=== PATIENT | male | born 1960 | race Caucasian/White ===

== ENCOUNTER 2023-11-04 22:09 | Inpatient (IN) ==
--- OUTSIDE RECORDS SUMMARY | 2023-11-04 22:16 | External Medical Summary | Summary of Care ---
Author Name Unknown Organization [facility] Address [address] [facility] [place] [address] Phone [phone] Care Team Providers Care Sales And Marketing Representative Name Role Phone Lakhwinder Colbert MD Primary Care Provider [phone] Reason for Visit * Reason Comments Physical-Exam Pt presents for year ly physical exam.Pt has pain in R leg that radiates to foot while laying down. Encounter Details Date Type Department Care Team (Late st Contact Info) Description 10/25/2023 2:40 PM EST Office Visit [facility] [address] [place] [phone] Valeria Stoddard PA-C [address] [place], [place] [phone] Wellness examination*; Prediabetes; Elevated blood pressure, situational; Weight gain; Piriformis syndrome of right side Allergies No known active allergiesdocumented as of this encounter (statuses as of 10/25/2023) Medications Medication Sig Dispensed Refills Start Date End Date Status Garlic 1000 MG Capsule Take 1 Capsule by mouth in the morning. 1 Cap 0 09/26/2019 Active fish oil concentrate (OMEGA-3) 1000 MG CAPS Take 1 Capsule by mouth in the morning and 1 Capsule before bedtime. 60 Cap 5 09/26/2019 Active Turmeric Curcumin Oral Capsule Take by mouth. 0 Active Sildenafil Citrate 100 MG Oral TabletIndications:Oth er male erectile dysfunction Take 1 Tablet by mouth daily as needed for Erectile Dysfunction. 5 Tablet 5 10/12/2021 Active Atorvastatin Calcium 20 MG Oral Tablet (Lipitor)Indications: Hyperlipidemia with target LDL less than 100 TAKE 1 TABLET BY MOUTH EVERY DAY 90 Tablet 3 11/29/2022 Active Loratadine 10 MG Oral Tablet (Claritin)Indications :Seasonal allergic rhinitis due to other allergic trigger TAKE 1 TABLET BY MOUTH EVERY DAY 90 Tablet 3 12/04/2022 Active Fluticasone Propionate 50 MCG/ACT Nasal Suspension (Flonase)Indications: Seasonal allergic rhinitis due to other allergic trigger SPRAY 2 SPRAYS INTO EACH NOSTRIL EVERY DAY Strength: 50 MCG/ACT 48 mL 1 12/08/2022 Active documented as of this encounter (statuses as of 10/25/2023) Active Problems Problem Noted Date Diagnosed Date Prediabetes 01/06/2020 Overview: Per Prediabetes protocol Allergic rhinitis due to allergen 05/06/2018 Abnormal results of liver function studies 08/17 Hyperlipidemia with target LDL less than 100 06/2017 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 documented as of this encounter (statuses as of 10/25/2023) Immunizations Name Administration Dates Next Due TDAP (age 10 and older)(Boostrix) 09/26/2019 documented as of this encounter Social History Tobacco Use Types Packs/Day Years Used Date Smoking Tobacco: Never Smokeless Tobacco: Current Snuff Comments:1/2 can per day Alcohol Use Standard Drinks/Week Comments Yes 0 (1 standard drink = 0.6 oz pure alcohol) rare occasions - once per month PHQ-2 Answer Date Recorded PHQ-2 Score 0 10/08/2020 Hunger Vital Sign Answer Date Recorded Within the past 12 months, y ou worried that your food would run out before you got the money to buy more. Never true 10/08/20 20 Within the past 12 months, t he food you bought just didn't last and you didn't have money to get more. Never true 10/08/2020 Sex and Gender Information Value Date Recorded Sex Assigned at Male 09/26/2019 7:26 AM EDT Gender Identity Male 09/26/2019 7:26 AM EDT Sexual Orientation Straight 09/26/2019 7: 26 AM EDT Job Start Date Occupation Industry Not on file Not on file Not on file documented as of this encounter Last Filed Vital Signs Vital Sign Reading Time Taken Comments Blood Pressure 142/82 10/25/2023 3:13 PM EST Pulse 100 10/25/2023 2:47 PM EST Temperature 36.5 C (97.7 F) 10/25/2023 2:47 PM ES T Respiratory Rate 16 10/25/2023 2:47 PM EST Oxygen Saturation - - Inhaled Oxygen Concentration - - Weight 109.4 kg (241 lb 3.2 oz) 10/25/2023 2:47 PM EST Height - - Body Mass Index 32.94 10/12/2022 9:53 AM EST documented in this encounter Progress Notes * Valeria Stoddard PA-C - 10/25/2023 2:56 PM EST Images from the original note were not included. History of Present Illness Ivan Plata is a 63 year old male that presents for Physical-Exam (Pt presents for yearly physical exam./Pt has pain in R leg that radiates to foot while laying down.) Here for cpe Tdap 2019 A bit surprised to se bp is up today.d enies headaches, cp, soba n fatigue. Has some pain in his R leg that radiates down to his foot when laying down Saw Lakhwinder Rojo and it helped He has exercises to do and they help If he does not do them then it hurts. No past medical history on file. Extensive ROS Constitutional (f/c/wt/vision/hearing): Negative and eye exam is current Resp (cough/sob/swift): Negative CV (cp/palp/fluttering/diaphoresis/swift/pnd):Negative GI (n/v/d/hrtburn): Negative Endo (hair/cold or heat intol/ 3 p's): Negative Neuro (shaking/weak/fatigu/parasthesi/): Negative Skin (rash/easy bruis/xerosis): Negative Psy (si/hi/halluc/): Negative (nocturia/hesit/drib/sexual review): Negative Lymph (swollen glands/b sx's/: Negative Physical Exam Vitals: 10/25/23 1447 Temp: 36.5 C (97.7 F) Pulse: 100 Resp: 16 BP: 146/86 BP Readings from Last 3 Encounters: 10/25/23 146/86 10/12/22 128/88 10/12/21 128/70 Wt Readings from Last 3 Encounters: 10/25/23 109.4 kg (241 lb 3.2 oz) 10/12/22 102.5 kg (226 lb) 10/12/21 103.5 kg (228 lb 3.2 oz) BMI Readings from Last 3 Encounters: 10/25/23 32.94 kg/m 10/12/22 30.87 kg/m 10/12/21 31.17 kg/m Ht Readings from Last 3 Encounters: 10/12/22 1.822 m (5' 11.75") 10/12/21 1.822 m (5' 11.75") 08/29/21 1.822 m (5' 11.75") General: alert, healthy, and no distress Head: Normocephalic, No masses, lesions, tenderness or abnormalities Eye Exam: PERRLA, extraocular movements intact, conjunctiva are pink and non- injected, sclera clear Ears: External ears normal, Canals clear, TM's Normal Nose: no mucosal erythema, no mucosal edema, no purulent discharge Oropharynx: no exudate, no erythema, lips, buccal mucosa, and tongue normal, and mucous membranes are moist Neck: supple, no adenopathy, no bruits, thyroid normal size, non-tender, without nodularity Heart: regular rate & rhythm, no murmur, no gallops, S-1 normal, and S-2 normal Lungs: chest symmetric with normal AP diameter, no chest deformities noted, no chest wall tenderness, lungs clear to auscultation Pulses: carotid=2/4 w/o bruits Abdomen: abdomen soft, non-tender, normal bowel sounds, and no masses or organomegaly Back: back symmetric, no curvature, no costovertebral angle tenderness, range of motion is normal Extremities: less than 2 second capillary refill, no joint deformities, effusion, or inflammation Neuro Exam: alert & oriented x 3 with fluent speech, no focal motor/sensory deficits, gait normal, reflexes normal and symmetric Skin: skin color, texture, turgor are normal, no rashes or significant lesions Musculoskeletal: FROM UE and LE, normal tone, no gross deformity noted, neg HANANE, no synovitis appreciated in the small joints of the hands, R hip - tight piriformis Assessment and Plan Wellness examination (Primary) Prediabetes - labs normal Elevated blood pressure, situational - repeat 142/82 He will watch bp and repeat at home Weight gain The patient is asked to make an attempt to improve diet and exercise patterns to aid in medical management of this problem. It is recommended that patients exercise for a minimum of 20 minutes duration most days of the week. Intensity should be such that the heart rate is increased and the patient is making a physical effort above their normal level of activity. Piriformis syndrome of right side hep Wrap-Up Time: I spent a total of 20-29 minutes (exact time 24 mins) on the date of service in preparation, delivery, and documentation of the care provided to Ivan Plata excluding any time spent in the performance of separately billed services. Valeria Stoddard PA-C 10/25/2023 3:14 PM documented in this encounter Nursing Notes * Taniya Epstein MED ASSIST - 10/25/2023 2:52 PM EST The patient has been properly identified by confirmation of name and date of . Chief Complaint Patient presents with Physical-Exam Pt presents for yearly physical exam. Pt has pain in R leg that radiates to foot while laying down. documented in this encounter Plan of Treatment Scheduled Procedures Name Priority Associated Diagnoses Date/Ti me COLONOSCOPY FLEXIBLE PROXIMAL DIAGNOSTIC Recall History of colon polyps Health Maintenance Due Date Last Done Comments COVID-19 Vaccine (#1) 1959 Zoster Vaccines (1 of 2) 2009 Depression Screening 09/29/2021 09/29/2020 Influenza Vaccine (FLU shot) (#1) 2023 COLONOSCOPY-EVERY 5 YRS AGES 18-100 09/25/2023 09/25/2018, 09/25/2018 HbA1c 10/05/2024 10/05/2023, 01/2022, 12/09/2019 Lipid Panel 10/05/2028 10/05/2023, 01/2022, 01/03/2019, Additional history exists DTaP,Tdap,and Td Vaccines (2 - Td or Tdap) 09/26/2029 09/26/2019 GARDASIL-HPV IMMUNIZATION SERIES Aged Out No longer eligible based on patient's age to complete this topic Hepatitis B Aged Out No longer eligi ble based on patient's age to complete this topic MENINGOCOCCAL (MENACTRA/MENVEO) Aged Out No longer eligible based on patient's age to complete this topic Pneumococcal Vaccine: Pediatrics (0 to 5 Years) and At-Risk Patients (6 to 64 Years) Aged Out No longer eligible based on patient's age to complete this topic documented as of this encounter Medical Devices Not on filedocumented as of this encounter Visit Diagnoses Diagnosis Wellness examination- Primary Prediabetes Other abnormal glucose Elevated blood pressure, situational Elevated blood pressure reading without diagnosis of hypertension Weight gain Abnormal weight gain Piriformis syndrome of right side Lesion of sciatic nerve documented in this encounter Care Teams Sales And Marketing Representative Relationship Specialty Start Date End Date Lakhwinder Colbert MD [address] [place] [address] PCP - General Family Medicine 08/03/17 documented as of this encounter
--- OUTSIDE RECORDS SUMMARY | 2023-11-04 22:17 | External Medical Summary | Continuity of Care Document ---
Author Name Unknown Organization [facility] [address] [place], [place] [id number] Care Team Providers Care Client Experience Consultant Name Role Phone Yimi Flores Primary Care Physician [phone] [id number] Date[facility]): 10/05/23 - 10/05/23 [facility] [address] [facility] [address] [facility] [address] [place], [place] [phone] Encounter Diagnosis Family history of other endocrine, nutritional and metabolic diseases(Final) - Discharge Disposition: Home or Self Care Attending Physician: MARBELLA Stoddard Desiree A Referring Physician: MARBELLA Stoddard Desiree A Allergies, Adverse Reactions, Alerts No Known Allergies Medications aspirin 81 mg oral tablet Start: 10/11/10 10:31:49, 81 mg = 1 tab, PO, Daily, Refills: 0, current medication from another provider Start Date: 10/11/10 Status: Ordered Flax Seed Oil Start: 12/06/10 10:12:05, Daily, Refills: 0, current medication from another provider Start Date: 12/06/10 Status: Ordered multivitamin Start: 10/25/10 11:36:50, 1 tab, Daily, Refills: 0, current medication from another provider Start Date: 10/25/10 Status: Ordered omega-3 polyunsaturated fatty acids oral capsule Start: 10/25/10 11:35:59, 2400 mg =, Daily, Refills: 0, current medication from another provider Start Date: 10/25/10 Status: Ordered Results Laboratory List Name Date Complete Blood Count (CBC) 10/05/23 Ferritin (FERRITIN) 10/05/23 Iron Level (IRON) 10/05/23 Most recent to oldest [Reference Range]: 1 MPV [9.0-12.2 fL] 9.6 fL 1 (10/05/23 8:40 AM) RDW [11.5-14.2 %] 12.6 % (10/05/23 8:40 AM) Iron [50-158 ug/dL] 80 ug/dL (10/05/23 8:40 AM) Ferritin [17.9-464.0 ng/mL] 348.0 ng/mL 2 (10/05/23 8:40 AM) Hct [39-48 %] 46.8 % (10/05/23 8:40 AM) Hgb [13.0-17.0 g/dL] 15.1 g/dL (10/05/23 8:40 AM) MCH [28-33 pg] 29.4 pg (10/05/23 8:40 AM) MCHC [32-36 g/dL] 32.3 g/dL (10/05/23 8:40 AM) MCV [81-96 fL] 91.2 fL (10/05/23 8:40 AM) Plts [150-350 K/uL] 241 K/uL (10/05/23 8:40 AM) RBC [4.40-5.60 M/uL] 5.13 M/uL (10/05/23 8:40 AM) WBC [4.0-10.4 K/uL] 7.48 K/uL (10/05/23 8:40 AM) 1Result Comment: Testing Performed By: Dept of Pathology [facility] [address], [address] [place] [address] 2Result Comment: Testing Performed By: Dept of Pathology [facility] [address], [address] [place] [address] Patient Care team information Care Team Personnel Name: MD lFores Charles T Position: Referring DIRECT Member Role: Primary Care Provider Address: Address: [facility] [address], [address] [place] [address] Care Team Related Persons Name: IAN JIMENEZ Address: [facility] Address: home [address], [phone] Name: ALEXI JIMENEZ Address: home [address] [place], [place] [phone] Name: MYNOR JIMENEZ Address: home [address] [place], [place] [id number]
--- OUTSIDE RECORDS SUMMARY | 2023-11-04 22:17 | External Medical Summary | Summary of Care ---
Author Name Unknown Organization [facility] Address [address] [place] [address] Phone [phone] Care Team Providers Care Senior Engineer Name Role Phone Lakhwinder Colbert MD Primary Care Provider [phone] Reason for Visit * Reason Onset Date Comments Health Maintenance 09/04/2023 Encounter Details Date Type Department Care Team Description 09/04/2023 Telephone [facility] [address] [place] [address] Lakhwinder Colbert MD [address] [place] [address] Health Maintenance Allergies No known active allergiesdocumented as of this encounter (statuses as of 09/04/2023) Medications Medication Sig Dispensed Refills Start Date End Date Status Garlic 1000 MG Capsule Take 1 Cap by mouth daily. 1 Cap 0 09/26/2019 Active fish oil concentrate (OMEGA-3) 1000 MG CAPS Take 1 Cap by mouth 2 times a day. 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 Never true 10/08/2020 Within the past 12 months, t he food you bought just didn't last and you didn't have money to get more. Never true 10/08/2020 Sex Assigned at Date Recorded Male 09/26/2019 7:26 AM E DT Job Start Date Occupation Industry Not on file Not on file Not on file documented as of this encounter Miscellaneous Notes * Telephone Encounter - Maxine Santos LPN - 09/04/2023 9:38 AM EDT Care Gaps Comprehensive Care Outreach Last Office/Telemedicine Visit: 10/12/2022 (in office), Visit date not found (telemedicine) Next Office Visit: Visit date not found Hemoglobin AIC Results: No results found for: HEMOGLOBIN A1C Reviewed Health Maintenance below: Health Maintenance Topic Date Due COVID-19 Vaccine (1) Never done Zoster Vaccines (1 of 2) Never done Depression Screening 09/29/2021 Influenza Vaccine (FLU shot) (1) Never done HbA1c 08/28/2023 COLONOSCOPY-EVERY 5 YRS AGES 18-100 09/25/2023 [facility] add lipid colon Care Gap Outreach Action Taken: Left message documented in this encounter Plan of Treatment Scheduled Procedures Name Priority Associated Diagnoses Date/Ti me COLONOSCOPY FLEXIBLE PROXIMAL DIAGNOSTIC Recall History of colon polyps Health Maintenance Due Date Last Done Comments COVID-19 Vaccine (#1) 1959 Zoster Vaccines (1 of 2) 2009 Depression Screening 09/29/2021 09/29/2020 Influenza Vaccine (FLU shot) (#1) 2023 HbA1c 08/28/2023 08/28/2022, 12/09/2019 COLONOSCOPY-EVERY 5 YRS AGES 18-100 09/25/2023 09/25/2018, 09/25/2018 Lipid Panel 08/28/2027 08/28/2022, 01/03/2019, 08/15/2017 DTaP,Tdap,and Td Vaccines (2 - Td or Tdap) 09/26/2029 09/26/2019 GARDASIL-HPV IMMUNIZATION SERIES Aged Out No longer eligible b ased on patient's age to complete this topic Hepatitis B Aged Out No longer eligi ble based on patient's age to complete this topic MENINGOCOCCAL (MENACTRA/MENVEO) Aged Out No longer eligible b ased on patient's age to complete this topic Pneumococcal Vaccine: Pediatrics (0 to 5 Years) and At-Risk Patients (6 to 64 Years) Aged Out No longer eligible b ased on patient's age to complete this topic documented as of this encounter Medical Devices Not on filedocumented as of this encounter Care Teams Senior Engineer Relationship Specialty Start Date End Date Lakhwinder Colbert MD [address], [place] [phone] PCP - General Family Medicine 08/03/17 documented as of this encounter
--- OUTSIDE RECORDS SUMMARY | 2023-11-04 22:17 | External Medical Summary | Continuity of Care Document ---
Author Name Unknown Organization [facility] [address] Address [address] [place], [place] [id number] Care Team Providers Care Pre Wave Assembler Name Role Phone Yimi Flores Primary Care Physician [phone] [id number] Date[facility]s): 10/05/23 - 10/05/23 [facility] [address] [facility] [address], [facility] [address] [place], [place] [phone] Encounter Diagnosis Hyperlipidemia, unspecified(Final) - Prediabetes(Final) - Discharge Disposition: Home or Self Care Attending Physician: MD Colbert Mark S Referring Physician: MD Sayra, Lakhwinder Akins Allergies, Adverse Reactions, Alerts No Known Allergies [...] Status: Ordered Results Laboratory List Name Date Comprehensive Metabolic Panel (COMP META B PANEL) 10/05/23 Hemoglobin A1C (HEMOGLOBIN, A1C) 3 Lipid Profile (LIPOPROTEINS) 10/05/23 Most recent to oldest [Reference Range]: 1 eGFR CKD-EPI [>60 mL/min/1.73 m2] 83 mL/ min/1.73 m2 1 (10/05/23 8:38 AM) Estimated Average Glucose 123 mg/dL 2 (10/05/23:38 AM) Non-HDL 151 mg/dL 3 (10/05/2338 AM) Anion Gap [5-14 mmol/L] 7 mmol/L (10/05/23:38 AM) Alb [3.5-5.0 g/dL] 4.4 g/dL (10/05/2338 AM) Alk Phos [38-126 unit/L] 93 unit/L (10/05/23:38 AM) ALT [<50 unit/L] 45 unit/L (10/05/2338 AM) AST [15-46 unit/L] 33 unit/L (10/05/2338 AM) BUN [7-20 mg/dL] 20 mg/dL (10/05/23:38 AM) Ca [8.4-10.2 mg/dL] 9.3 mg/dL (10/05/2338 AM) Chol/HDL 5 (10/05/2338 AM) Chol [125-200 mg/dL] 186 mg/dL (10/05/23:38 AM) Cl- [96-107 mmol/L] 108 mmol/L *HI* (10/05/23:38 AM) HCO3 [22-30 mmol/L] 27 mmol/L (10/05/23:38 AM) Cret [0.70-1.30 mg/dL] 1.01 mg/dL (10/05/23:38 AM) HbA1c [4.0-6.0 %] 5.9 % (10/05/23:38 AM) Glu [74-106 mg/dL] 134 mg/dL *HI* (10/05/23:38 AM) HDL [>35 mg/dL] 35 mg/dL *LOW* (10/05/23:38 AM) K [3.5-5.1 mmol/L] 5.3 mmol/L *HI* (10/05/23:38 AM) LDL Chol, Calculated [50-130 mg/dL] 115 mg/dL (10/05/23:38 AM) Na [137-145 mmol/L] 142 mmol/L (10/05/23 8:38 AM) T Bili [0.2-1.3 mg/dL] 0.7 mg/dL (10/05/23 8:38 AM) Prot [6.3-8.2 g/dL] 7.6 g/dL (10/05/23 8:38 AM) TG [<200 mg/dL] 178 mg/dL (10/05/23 8:38 AM) 1Result Comment: Testing Performed By: Dept of Pathology [facility] [address], [address], [place] [address] 2Result Comment: Testing Performed By: Dept of Pathology [facility] [address], [address], [place] [address] 3Result Comment: Testing Performed By: Dept of Pathology [facility] [address], [address] [facility], [place] [address] Patient Care team information Care Team Personnel Name: MD Sandra, Yimi Portillo Position: Referring DIRECT Member Role: Primary Care Provider Address: Address: [address], [address] [place] [address] Care Team Related Persons Name: IAN JIMENEZ Address: [facility] Address: home [address] [id number] Name: ALEXI JIMENEZ Address: home [address] [place], [place] [phone] Name: MYNOR JIMENEZ Address: home [address] [place], [place] [phone]
--- OUTSIDE RECORDS SUMMARY | 2023-11-04 22:17 | External Medical Summary | Summary of Care ---
Author Name Unknown Organization [facility] Address [address] [place] [address] Phone [phone] Care Team Providers Care Field Support Engineer Name Role Phone Lakhwinder Colbert MD Primary Care Provider [phone] Encounter Details Date Type Department Care Team (Late st Contact Info) Description 10/09/2023 Orders Only [facility] [address] [place] [phone] Valeria Stoddard PA-C [address] [place], [place] [phone] Allergies No known active allergiesdocumented as of this encounter (statuses as of 10/09/2023) Medications Medication Sig Dispensed Refills Start Date [...] as of this encounter (statuses as of 10/09/2023) Active Problems Problem Noted Date Diagnosed Date Prediabetes 01/06/2020 Overview: Per Prediabetes protocol Allergic rhinitis due to allergen 05/06/2018 Abnormal results of liver function studies 08/17 Hyperlipidemia with target LDL less than 100 06/2017 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 documented as of this encounter (statuses as of 10/09/2023) Immunizations Name Administration Dates Next Due TDAP [...] on file documented as of this encounter Plan of Treatment Upcoming Encounters Date Type Department Care Team (Late st Contact Info) Description 10/25/2023 2:40 PM EST Office Visit [facility] [address] [place] [phone] Valeria Stoddard [facility]C [address] [facility] [address] Scheduled Procedures Name Priority Associated Diagnoses Date/Ti me COLONOSCOPY FLEXIBLE PROXIMAL DIAGNOSTIC Recall History of colon polyps Health Maintenance Due Date Last Done Comments COVID-19 Vaccine (#1) 1960 Zoster Vaccines (1 of 2) 2009 Depression Screening 09/29/2021 09/29/2020 Influenza Vaccine (FLU shot) (#1) 2023 HbA1c 08/28/2023 10/05/2023, 01/2022, 12/09/2019 COLONOSCOPY-EVERY 5 YRS AGES 18-100 09/25/2023 09/25/2018, 09/25/2018 Lipid Panel 08/28/2027 10/05/2023, 01/2022, 01/03/2019, Additional history exists DTaP,Tdap,and [...] Not on filedocumented as of this encounter Procedures Procedure Name Priority Date/Time Associated Diagnosis Comments CHEMISTRY-OUTSIDE Routine 10/05/2023 documented in this encounter Results * CHEMISTRY-OUTSIDE (10/05/2023) Not all results display below - see scan for full detail OUTSIDE LAB (SEE SCANNED REPORT) Comment:SCAN INCLUDES: IRON, FERRITIN, CBC CREATININE-OUTSID E LAB OUTSIDE LAB (SEE SCANNED REPORT) EGFR-OUTSIDE LAB OUT SIDE LAB (SEE SCANNED REPORT) POTASSIUM-OUTSIDE LAB OUTSIDE LAB (SEE SCANNED REPORT) GLUCOSE-OUTSIDE LAB OUTSIDE LAB (SEE SCANNED REPORT) HOURS FASTING OUTSID E LAB (SEE SCANNED REPORT) TRIGLYCERIDES-OUT SIDE LAB OUTSIDE LAB (SEE SCANNED REPORT) CHOLESTEROL-OUTSI DE LAB OUTSIDE LAB (SEE SCANNED REPORT) HDL-OUTSIDE LAB OUTS MELI LAB (SEE SCANNED REPORT) CHOL/HDL RATIO-OUTSIDE LAB OUTSIDE LA B (SEE SCANNED REPORT) LDL (CALCULATED)-OUTS MELI LAB OUTSIDE LAB (SEE SCANNED REPORT) LDL (DIRECT MEASURE)-OUTSIDE LAB OUTSIDE LAB (SEE SCANNED REPORT) HEMOGLOBIN, [id number] LAB OUTSIDE LAB (SEE SCANNED REPORT) PHOSPHORUS-OUTSID E LAB OUTSIDE LAB (SEE SCANNED REPORT) PTH-OUTSIDE LAB OUTS MELI LAB (SEE SCANNED REPORT) MICROALBUMIN RATIO-OUTSIDE LAB OUTSIDE LA B (SEE SCANNED REPORT) PROTEIN, UA-OUTSIDE LAB OUTSIDE LAB (SEE SCANNED REPORT) HEMOGLOBIN-OUTSID E LAB 15.1 13 - 17 G/DL OUTSIDE LAB (SEE SCANNED REPORT) 10/05/2023 Valeria Stoddard PA-C LABORATORY OUTSIDE LAB (SEE SCANNED REPORT) documented in this encounter Care Teams Field Support Engineer Relationship Specialty Start Date End Date Lakhwinder Colbert MD [address] [place] [facility] [place] [address] PCP - General Family Medicine 08/03/17 documented as of this encounter
[2023-11-04] MEDS ORDERED: ALUMINUM/MAGNESIUM SUSP 30 ML UDC PO STA (22:27)
[2023-11-04] MEDS ORDERED: ASPIRIN CHEW 324 MG PO STA (22:27)
[2023-11-04] MEDS ORDERED: MoRPHine SULFATE 4 MG/ML 1 ML CARP\\VIAL IV STA (22:27)
[2023-11-04] MEDS ORDERED: PANTOprazole 40 MG TAB PO STA (22:27)
[2023-11-04] MEDS ORDERED: ONDANSETRON INJ 2 MG/ML 2 ML VIAL IV STA (22:27)
--- NOTE | 2023-11-04 22:30 | Emergency Department Note ---
Impression & Plan Acute non-ST segment elevation myocardial infarction, Chest pain ED Provider Note NAME: ADALID JIMENEZ AGE: 63 SEX: M : 1960 ARRIVES VIA: Walk-In INFORMANT: Patient, ED PROVIDER(S): Hipolito Qureshi DO CHIEF COMPLAINT: Chest pain HPI: The patient is a 63-year-old male who has a history of high cholesterol who presented to the emergency department for an evaluation of anterior chest pain. He describes anterior chest pressure that began prior to arrival. He states that he was eating chili today and thought it could be an upset stomach. His significant other states that he is not been feeling well throughout the day. The patient denies having any shortness of breath. He denies having any vomiting. He does not have a cardiac history and has had no cardiac catheterization or stents in the past. The patient was found to have an abnormal EKG in triage. It was brought to my attention and the patient was taken directly to room A1. Patient was made a heart alert ROS: See above HPI for pertinent positives & negatives. A total of 10 systems reviewed and were otherwise negative. PAST MEDICAL HISTORY: See Below PAST SURGICAL HISTORY: See Below FAMILY HISTORY: See Below SOCIAL HISTORY: See Below HOME MEDICATIONS: See Below ALLERGIES: See Below VITALS: See Below PHYSICAL EXAMINATION: GENERAL: Patient is awake alert in no acute distress patient is resting comfortably and showing no signs of anxiety EYES: The conjunctivae are clear. The pupils are round and reactive. EARS, NOSE, MOUTH AND THROAT: The nose is without any evidence of any deformity. NECK: The neck is nontender and supple. RESPIRATORY: Normal respiratory effort is noted there is no evidence of wheezing rhonchi or rales CARDIOVASCULAR: Regular rate and rhythm noted there no murmurs rubs or gallops normal S1 normal S2. GASTROINTESTINAL: The abdomen is soft. Abdomen is nontender. MUSCULOSKELETAL/EXTREMITIES: There is no evidence of gross deformity full range of motion is noted in the hips and shoulders. SKIN: There is no obvious evidence of any rash. There are no petechiae, pallor or cyanosis noted. Pulses are symmetric in both wrist. NEUROLOGIC: Patient is awake alert and oriented x3. Gait was steady. MEDICAL DECISION MAKING: The patient is a 63-year-old male who presented to the emergency department for an evaluation of chest pain. The patient states that he did not feel well throughout the day but this evening he started noticing anterior chest discomfort. He has never had similar symptoms in the past. He did eat chili this evening and thought it was secondary to GI upset. Upon arrival the patient had a EKG done in triage which was found to be abnormal. He was brought directly to room A1 and made a heart alert. The patient was treated with aspirin in the emergency department. He was also treated with a proton pump inhibitor and Maalox. He was also treated with morphine. On reevaluation the patient was pain-free but EKG continues to show ST segment abnormalities consistent with an acute PA. I consulted with the customer operations associate. He evaluated the patient in the emergency department and felt that he was a good candidate for intervention. He was taken directly to the cardiac Hotel Night Auditor. I also discussed his case with the on-call [facility] hospitalist. They have agreed to evaluate the patient after cath for inpatient management. Triage Nursing notes reviewed. Prior medical records reviewed Vital Signs: reviewed and remarkable for elevated blood pressure and tachycardia. Differential diagnosis: Cardiac ischemia, aortic dissection, pulmonary embolism, pneumothorax, pneumonia, pericarditis, myocarditis, esophageal rupture, GERD, cholecystitis, pancreatitis, musculoskeletal, as well as other pathologies. ER treatment provided: See below Diagnostics interpreted by me: ECG: EKG was obtained in the emergency department. My interpretation is normal sinus rhythm at 84 bpm. There was no ectopy. ST segment elevation was noted in the inferior leads. There was reciprocal changes in the high lateral leads. This appears to be consistent with acute inferior wall PA. This was compared to a tracing from March 05, 2019. The ST segment abnormalities are new compared to the previous tracing. A second EKG was obtained in the emergency department. My interpretation is sinus rhythm at 88 bpm. PACs were noted. Acute ST segment elevation was noted in the inferior leads with reciprocal changes noted in the high lateral leads. This appears similar to the tracing initially obtained in the emergency department. Cardiac Monitoring: An order was placed for continuous cardiac monitoring. The monitor shows a rate of 106 bpm with sinus tachycardia. Laboratory studies: As stated above and show below. Imaging studies: See below. Radiographic imaging was reviewed by myself Consultation(s): I discussed this case with Dr. Lizama who is on-call for the interventional cardiology group. I discussed this case with Dr. Dunn who is on-call for the [facility] project controls scheduler group. ED COURSE: Procedures: none Critical Care: I have personally spent greater than 35 minutes of critical care time in the direct management of this patient. This includes bedside care, interpretation of diagnostic studies, and testing, discussion with consultants, patient, and family members, and other required patient management activities. This 35 minutes is in excess of all separately billable procedures. Past Med/Surg History Medical History High cholesterol Social History Smoking Status: Never smoker Feels Safe at Home: Yes Allergies Allergies Allergy/AdvReac Type Severity Reaction Status Date / Time No Known Allergies Allergy Unverified 11/04/23 22:34 Home Meds Home Medications Medication Instructions Recorded Confirmed atorvastatin 20 mg tablet 20 mg PO DAILY 11/04/23 11/04/23 garlic 1,000 mg capsule 1,000 mg PO QAM 11/04/23 11/04/23 loratadine 10 mg tablet 10 mg PO DAILY 11/04/23 11/04/23 omega 8-bpn-ldr-fish oil 1,000 mg 1 cap PO AMHS 11/04/23 11/04/23 (120 mg-180 mg) capsule (Fish Oil) Results & Data (ED) Vital Signs Vital Signs - 24 hr 11/04/23 22:14 11/04/23 22:26 11/04/23 22:26 Temperature 36.8 C Temperature Source Temporal Artery Scan Pulse Rate 86 106 H Pulse Rhythm Regular Regular Pulse Strength Normal Respiratory Rate 20 18 Respiratory Effort / Characteristics Non-Labored Spontaneous Respiratory Depth Normal Blood Pressure 113/77 Blood Pressure Mean 89 Blood Pressure Position Sitting Pulse Oximetry 97 98 98 Oxygen Delivery Method Room Air Room Air Room Air Oxygen Flow Rate 0 Sepsis Recent Fever Within 48 Hours No Sepsis New/Unexplained Change in Mental Status N/A Sepsis Action Taken by Nursing No Action Required Home Medications Current Medication List: was personally reviewed by me Laboratory Data Attestation: I reviewed the patient's lab results. 11/04/23 Unknown 11/04/23 Unknown Lab Results 11/04/23 11/04/23 Range/Units 22:27 Unknown WBC 8.95 (4.8-10.8) K/ul RBC 5.06 (4.70-6.10) M/uL Hgb 15.0 (14.0-18.0) g/dl Hct 44.8 (42.0-52.0) % MCV 88.5 (80.0-100.0) fL MCH 29.6 (25.0-34.0) pg MCHC 33.5 (32.0-36.0) g/dL RDW Std Deviation 41.8 (36.4-46.3) fL RDW Coeff of Shine 12.9 (11.5-14.5) % Plt Count 248 (130-400) K/uL MPV 9.4 (9.4-12.4) fL Immature Gran % (Auto) 0.4 % Neut % (Auto) 52.5 % Lymph % (Auto) 34.3 % Dickens % (Auto) 9.3 % Eos % (Auto) 3.1 % Baso % (Auto) 0.4 % Neut # (Auto) 4.69 (1.40-6.50) K/uL Lymph # (Auto) 3.07 (1.20-3.40) K/uL Dickens # (Auto) 0.83 H (0.11-0.59) K/uL Eos # (Auto) 0.28 (0.00-0.50) K/uL Baso # (Auto) 0.04 (0.00-0.20) K/uL Immature Gran # (Auto) 0.04 (0.01-0.20) K/uL PT 10.8 (9.0-12.0) Seconds INR 1.0 (0.9-1.1) APTT 29 (21-31) Seconds PTT Ratio 1.0 Sodium 139 (136-145) mmol/L Potassium 3.7 (3.5-5.1) mmol/L Chloride 105 (98-107) mmol/L Carbon Dioxide 27 (21-32) mmol/L Anion Gap 7 (3-11) BUN 19 (6-23) mg/dl Creatinine 1.17 (0.6-1.4) mg/dl Est Cr Clr Drug Dosing 81.7 ml/min Est GFR ( Amer) 75.9 ml/min Est GFR (Non-Af Amer) 65.5 ml/min BUN/Creatinine Ratio 16.2 (10-20) Glucose 130 H (70-99(Fasting)) mg/dl Calcium 9.4 (8.6-10.3) mg/dl Total Bilirubin 0.6 (0.2-1.0) mg/dl AST 35 (13-39) U/L ALT 57 H (7-52) U/L Alkaline Phosphatase 97 (34-104) U/L Troponin I High Sens 158.0 H* (0-20) pg/ml Total Protein 7.2 (6.0-8.3) gm/dl Albumin 4.5 (3.4-5.0) gm/dl Globulin 2.7 (2.5-4.0) gm/dl Albumin/Globulin Ratio 1.7 (0.9-2) SARS-CoV-2 (PCR) NEGATIVE (Negative) Influenza Type A (PCR) Negative (Neg) Influenza Type B (PCR) Negative (Neg) RSV (RT-PCR) Negative (Neg) Administered Medications Discontinued Medications Al Hydrox/Mg Hydrox/Simethicone (Aluminum/Magnesium Susp 30 Ml Udc) 30 ml PO NOW STA Stop: 11/04/23 22:28 Last Admin: 11/04/23 22:34 Dose: 30 ml Documented By: LARS Aspirin (Aspirin Chew 324 Mg) 324 mg PO NOW STA Stop: 11/04/23 22:28 Last Admin: 11/04/23 22:36 Dose: 324 mg Documented By: LARS Heparin Sodium (Porcine) (Heparin Sod (Porcine) 1000 Unit/Ml) Confirm Administered Dose 1,000 units .ROUTE .STK-MED ONE Stop: 11/04/23 22:33 Last Admin: 11/04/23 22:39 Dose: Not Given Documented By: LARS Morphine Sulfate (Morphine Sulfate 4 Mg/Ml 1 Ml Carp\Vial) 4 mg IV NOW STA Stop: 11/04/23 22:28 Last Admin: 11/04/23 22:38 Dose: 4 mg Documented By: LARS Ondansetron HCl (Ondansetron Inj 2 Mg/Ml 2 Ml Vial) 4 mg IV NOW STA Stop: 11/04/23 22:28 Last Admin: 11/04/23 22:34 Dose: 4 mg Documented By: LARS Pantoprazole Sodium (Pantoprazole 40 Mg Tab) 40 mg PO NOW STA Stop: 11/04/23 22:28 Last Admin: 11/04/23 22:34 Dose: 40 mg Documented By: LARS Ticagrelor (Ticagrelor 90 Mg Tab) Confirm Administered Dose 180 mg .ROUTE .STK- MED ONE Stop: 11/04/23 22:33 Last Admin: 11/04/23 22:39 Dose: Not Given Documented By: LARS Imaging Data Attestation: I personally reviewed and interpreted this imaging study as follows: My Impression: 1 view chest x-ray was obtained in the emergency department. My interpretation is cardiomegaly, no free air, no definite infiltrate, final report pending Discharge Plan Visit Data Chief Complaint: Cardiac Assessment Stated Complaint: CHEST PAIN, LT ARM TINGLINESS, SOB ED Provider: Hipolito Qureshi Discharge Problem: Acute non-ST segment elevation myocardial infarction, Chest pain Patient Disposition: Being Evaluated by Hospitalist Discharge Problem: Chest pain Qualifiers: Chest pain type: unspecified Qualified Code(s): R07.9 - Chest pain, unspecified
[2023-11-04] MEDS ORDERED: TICAGRELOR 90 MG TAB ONE (22:32)
[2023-11-04] MEDS ORDERED: HEPARIN SOD (PORCINE) 1000 UNIT/ML ONE (22:32)
[2023-11-04 22:37] LABS: Basophils # (auto) 0.04 K/uL (0.00-0.20); Basophils % (auto) 0.4 %; Eosinophils # (auto) 0.28 K/uL (0.00-0.50); Eosinophils % (auto) 3.1 %; Hematocrit (blood only) 44.8 % (42.0-52.0); Immature Granulocytes # (auto) 0.04 K/uL (0.01-0.20); Immature Granulocytes % (auto) 0.4 %; Lymphocytes # (auto) 3.07 K/uL (1.20-3.40); Lymphocytes % (auto) 34.3 %; Mean Corpuscular Hemoglobin 29.6 pg (25.0-34.0); Mean Corpuscular Hgb Conc 33.5 g/dL (32.0-36.0); Mean Corpuscular Volume 88.5 fL (80.0-100.0); Mean Platelet Volume 9.4 fL (9.4-12.4); Monocytes # (auto) 0.83 K/uL (0.11-0.59); Monocytes % (auto) 9.3 %; Neutrophils # (auto) 4.69 K/uL (1.40-6.50); Neutrophils % (auto) 52.5 %; Platelet Count 248 K/uL (130-400); RDW Coefficient of Variation 12.9 % (11.5-14.5); RDW Standard Deviation 41.8 fL (36.4-46.3); Red Blood Count 5.06 M/uL (4.70-6.10); White Blood Count 8.95 K/ul (4.8-10.8)
[2023-11-04] MEDS ORDERED: niCARdipine HCL INJ 2.5 MG/ML 10 ML AMP ONE (22:40)
[2023-11-04] MEDS ORDERED: MIDAZOLAM HCL 1 MG/ML 2ML VIAL ONE (22:40)
[2023-11-04] MEDS ORDERED: fentaNYL citrate PF 100 MCG/2 ML VIAL ONE (22:40)
[2023-11-04] MEDS ORDERED: HEPARIN (PORCINE) 1000 UNIT/ML 10 ML (CATH LAB USE ONLY) ONE (22:40)
[2023-11-04] MEDS ORDERED: NITROGLYCERIN/D5W 100MCG/ML 20ML SYR ONE (22:41)
[2023-11-04 22:56] LABS: Albumin Globulin Ratio 1.7 (0.9-2); Albumin Level 4.5 gm/dl (3.4-5.0); BUN Creatinine Ratio 16.2 (10-20); Bilirubin,Total 0.6 mg/dl (0.2-1.0); Calcium 9.4 mg/dl (8.6-10.3); Creatinine Clr Calc Pharmacy 81.7 ml/min; Est GFR (African American) 75.9 ml/min; Est GFR (Non-African American) 65.5 ml/min; Globulin 2.7 gm/dl (2.5-4.0); Potassium 3.7 mmol/L (3.5-5.1); Total Protein 7.2 gm/dl (6.0-8.3)
--- NOTE | 2023-11-04 23:02 | Pre Anesthesia Assessment ---
Date of Service November 04, 2023 Pre Sedation Assessment Vital Signs Temp Pulse Resp BP Pulse Ox O2 Del Method O2 Flow Rate 11/04/23 22:26 106 H 18 98 Room Air 11/04/23 22:26 98 Room Air 0 11/04/23 22:14 98.2 F 86 20 113/77 97 Room Air Cardiovascular + regular rate Respiratory + respiratory effort normal Pre-Sedation Airway Assessment Smoking Status: Never smoker Hx Sleep Apnea: No Hx Difficult Intubation: No Short, Thick Neck: No Thyromental Distance: > or= 3.5 Finger Breadths Oral Cavity: + WNL Mallampati Class: III ASA: ASA4 Procedure Planning Contraindications for Sedation: none Current Medications Reviewed: Yes Notes The planned sedation has been discussed with the patient. Informed Consent was obtained. I have identified the patient, determined the appropriateness of sedation and have assessed the patient immediately prior to the procedure. All medicine(s) and interventions are by my order.
--- NOTE | 2023-11-04 23:04 | Cardiology Consultation ---
Date of Consultation November 04, 2023 Assessment & Plan (1) Acute non-ST segment elevation myocardial infarction: Presentation consistent with inferior STEMI and recommend proceeding with emergent cardiac catheterization and likely primary PCI. No apparent contraindications to procedure. Discussed risks, benefits, alternatives of procedure with patient and they are willing to proceed. Given ticagrelor 180 mg in the ED. Further recommendations pending findings of coronary angiography. History of Present Illness History of Present Illness Mr. Plata is a 63 -year-old man here with acute chest pain and ECG concerning for acute MA. Patient seen emergently in the ED after heart alert activated on arrival. No prior cardiac history. Cardiac risk factors include dyslipidemia. No other significant medical issues. He reports mild intermittent chest symptoms and feeling generally unwell beginning this afternoon. Around 8 PM tonight chest pain became more severe and persistent with associated nausea, initially thought indigestion. Denies similar symptoms in the past. Chest pain ongoing at time of arrival. Hypertensive with blood pressures in the 190s. Chest pain largely resolved with morphine. Serial ECG showed persistent inferior ST elevation and ST depression in leads I, aVL. Family history: Father had CABG in his 60s, mother had stroke in her 60s. 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 Lives with his . 3 grown children. Non-smoker Allergies Allergy/AdvReac Type Severity Reaction Status Date / Time No Known Allergies Allergy Unverified 11/04/23 22:34 Home Medications Medication Instructions Recorded Confirmed Type atorvastatin 20 mg tablet 20 mg PO DAILY 11/04/23 11/04/23 History garlic 1,000 mg capsule 1,000 mg PO QAM 11/04/23 11/04/23 History loratadine 10 mg tablet 10 mg PO DAILY 11/04/23 11/04/23 History omega 3-ahk-qkz-fish oil 1,000 mg 1 cap PO AMHS 11/04/23 11/04/23 History (120 mg-180 mg) capsule (Fish Oil) Patient History Medical History High cholesterol Social History Smoking Status: Never smoker Feels Safe at Home: Yes Review of Systems Review of Systems: Not completed in the setting of emergent situation Physical Exam Physical Exam: General: Uncomfortable HEENT: Sclerae anicteric Lungs: Clear to auscultation bilaterally Cardiac: Tachycardic, regular, no murmurs Vascular: 2+ radia Abdomen: Soft, nontender Extremities: Well perfused, no peripheral edema Neuro: Nonfocal Psych: Alert orient x3, normal affect and mood Results & Data Vital Signs (Past 12 Hours) Vital Signs Temp Pulse Resp BP Pulse Ox O2 Del Method O2 Flow Rate 11/04/23 22:26 106 H 18 98 Room Air 11/04/23 22:26 98 Room Air 0 11/04/23 22:14 98.2 F 86 20 113/77 97 Room Air PG Care Time/CCT Total # of Minutes Spent Total Time Spent with Patient: Total time spent is greater than 50% in coordination of care (as documented) at patient's floor/unit and/or counseling patient: Coding Level of Care Code 48833 OFFICE CONSULT LVL Diagnoses Acute non-ST segment elevation myocardial infarction I21.4
[2023-11-04 23:07] LABS: Partial Thromboplastin Time 29 Seconds (21-31); Prothrombin Time 10.8 Seconds (9.0-12.0)
[2023-11-04 23:14] LABS: Influenza A virus by PCR Negative (Neg); Influenza B virus by PCR Negative (Neg); RSV by PCR Negative (Neg); SARS CoV2 RNA(COVID-19) Ceph NEGATIVE (Negative)
[2023-11-04] MEDS ORDERED: NITROGLYCERIN SL 0.4 MG/TAB TAB SL PRN (23:51)
[2023-11-04] MEDS ORDERED: ACETAMINOPHEN 325 MG TAB PO PRN (23:51)
--- NOTE | 2023-11-05 | Cardiac Catheterization ---
[facility] Data: Melter Clerk Cardiac Status Clinical evaluation leading to the procedure CAD Presenation: STEMI Anginal Classification: CCS IV Diagnostic Physicians Name: Russ Lizama MD Closure Device Recommendations: PCI without planned CABG Cardiac Cath Procedure Full Procedure Date November 05, 2023 Pre-Procedure Diagnosis Pre-Procedure Diagnosis: STEMI AUC Score AUC Score: 9 Post-Procedure Diagnosis Post-Procedure Diagnosis: Severe CAD, Successful PCI and Elevated Intracardiac Pressures Procedure(s) Performed Procedure(s) Performed: Coronary Angiography, Left Heart Cath and Drug Eluting Stent Radiology Interventional Physician Russ Lizama MD Laminating Press Operator(s) Wil Francisco Estimated Blood Loss Estimated Blood Loss: 10 Medication(s) Medication(s): Fentanyl, Heparin, Lidocaine 1%, Nicardipine, Nitroglycerin and Versed Medication(s): Ticagrelor Summary of Findings Indication: STEMI/Heart Alert Access: 6 Fr right radial artery Catheters: Mcgregor, EBU 3.5 guide, pigtail Findings: LM -normal caliber, no significant disease LAD -medium caliber, 30 to 40% proximal disease, focal 50% stenosis in the midsegment, distal vessel without significant disease and wraps around apex.. Very small D1 without disease. Medium caliber bifurcating D2 without disease. Circumflex -medium caliber 98% acute mid circumflex stenosis extending across OM 3 into distal vessel. Small OM 3 with 30% ostial stenosis. Medium left PLB without significant disease. RCA -dominant medium caliber, 50 to 60% mid stenosis, distal vessel and small RPDA, PLB's without disease. LVEDP -21 -- PCI -- Antithrombotic therapy: Heparin, ticagrelor Procedure: Left main cannulated with EBU 3.5 guide Piccolo Mechanic 50 wire passed across lesion into distal vessel Mid circumflex lesion predilated with 2.5 compliant balloon Dilated lesion stented with 2.75 x 28 mm Xience drug-eluting stent Stent post-dilated with 3.0 noncompliant balloon IC vasodilators administered for spasm Post procedure CHAPARRO 3 flow, stent well expanded with minimal residual stenosis and no apparent cardiac complications. Arterial Closure: TR band Summary: 1. Inferior STEMI/acute 98% mid circumflex 2. Moderate non-culprit coronary artery disease -30% proximal LAD, 50% focal mid LAD 50 to 60% mid RCA 3. Elevated intracardiac filling pressure. 4. Successful PCI of mid to distal circumflex with single drug-eluting stent (2.75 x 28 mm Xience; postdilated with 3.0 NC). Recommendations: Admit to ICU for continued monitoring Loaded with ticagrelor 180 mg in ED Continue dual-antiplatelet therapy for at least 1 year. Trend troponins until peak, Check Echo Uptitrate beta-nile/ARB as BP allows High-dose statin Consult cardiac Rehab Plan for medical management of residual moderate nonculprit coronary artery disease. Hemodynamics Rest Ao:: 138/88/115 Final Ao: 141/85/113 LV: 136/21 Recommendations Recommendations: PCI without planned CABG Specimens Specimens: None Radiation Exposure (mGy) 2544 Contrast (mls) 90 Anesthesia Moderate 9834-4226 Procedural Complication(s) None Disposition ICU I attest to the content of the Intraoperative Record and any orders documented therein. Any exceptions are noted below. [facility] Card Cath Procedure Codes Cardiac Catheterization Procedure 1: Cardiovascular Cath Procedures: 21569 Coronaries and LHC (+/-LV) Moderate Sedation Procedure 1: Sedation/Anesthesia: 02032 Mod Sedation by the same physician;Init15 Min Child Age 5 & Up Procedure 2: Sedation/Anesthesia: 66689 Mod Sedation by the same physician; Ea [id number] Minutes Stenting Procedure 1: Cardiovascular Stent Procedures: 52571 Perc transluminal revascularization of acute sub/total occl, aMI PG Care Time/CCT Total # of Minutes Spent Total Time Spent with Patient: Total time spent is greater than 50% in coordination of care (as documented) at patient's floor/unit and/or counseling patient:
--- NOTE | 2023-11-05 00:01 | Post Anesthesia Assessment ---
Date of Service November 05, 2023 Post Sedation Assessment Vital Signs Temp Pulse Resp BP Pulse Ox O2 Del Method O2 Flow Rate 11/04/23 22:30 95 H 11/04/23 22:26 106 H 18 98 Room Air 11/04/23 22:26 98 Room Air 0 11/04/23 22:14 98.2 F 86 20 113/77 97 Room Air Recovery Score Activity: Moves 4 extremities Respiration: Deep Breath/Cough Circulation: +/-20% PreAnes Value Consciousness: Fully Awake Oxygen Saturation: O2 needed for >90% Discharge Sedation Level of Care: Fast Track Phase II Post Sedation Plan On clinical assessment, the patient appears to have tolerated the sedation wit hout complications. Patient is recovering as anticipated. Patient will continue to be monitored by nursing and may be discharged when sedation discharge criteria are met per below protocol. Upon Completions of procedure up to 15 minutes continue every 5 minute vital signs and the P.A.R. score; then discharge to a Phase I or Fast Track to Phase II per the following guidelines: * Discharge Patient to appropriate Phase II area if PAR is 8 or greater or return to pre- procedure baseline. The post - procedure orders will be as directed. * If PAR score is less than 8 or not return to pre-procedure baseline then patient will follow Phase I monitoring till PAR is reached for Phase II. The Phase I may be done in procedure room or may call to secure a Phase I area. * If naloxone or flumazenil are used for reversal, hold in Phase I for continued monitoring from when last reversal dose was given for a minimum of 60 minutes or longer pending the nurse and/or physician discretion of patient condition before discharge to Phase II. Please call the Sedation Physician to re-evaluate and complete post-note for discharge to Phase II area. Do NOT discharge from procedure sedation or Phase 1 until post- sedation evaluation note is complete by procedure /sedation MD Sedation Discharge Instructions to be given to the patient at discharge to home.
--- NOTE | 2023-11-05 00:50 | Critical Care Consultation ---
Date of Consultation November 05, 2023 Assessment & Plan (1) STEMI (ST elevation myocardial infarction): (2) HTN (hypertension): (3) HLD (hyperlipidemia): Plan Reason Critically Ill: 63 YOM presents with chest pain , acute STEMI taken to botany laboratory assistant and is now s/p 1 MARISSA to circumflex artery. Patient to ICU hemodynamically stable chest pain free. Neuro - No acute needs CAM ICU: NEGATIVE Cardiac - STEMI, S/P MARISSA to circumflex, CAD, HTN, HLD - Patient is status post MARISSA to circumflex- post intervention ECG improved- right radial access site per TR band protocol - Monitor hemodynamics and telemetry for acute changes/ectopy/arrhythmia - DAPT per cardiology - ECHO in morning - Lipid panel in am - high dose stain already ordered - ARB already initiated - BB initiated - HGB A1c in am- therapy as indicated - STOP BANG- 4 consider [place] screening as outpatient for reduction of overall CAD risk Respiratory - No acute needs GI - GERD - Continue PPI while on DAPT RENAL/LYTES - No acute needs - ICU electrolyte replacement - No acute needs ENDO - No acute needs - HGB A1c In am HEME - No aciute needs ID - NO concern at this time for infective process LINES/IV ACCESS - - PIV Continue use of these lines DVT PROPHYLAXIS - SCDS, ambulation, ASA/Brillinta DISPO: ICU post stent placement, pending hemodynamics, rhythm and ECHO results in am can likely downgrade in afternoon. I have personally spent 40 minutes of critical care time in the direct management of this patient. This is a life/limb threatening event. This includes time spent evaluating patient, direct bedside care, chart review, placing ord ers, interpretation of diagnostic studies, discussion with consultants, patient, and family members, as well as other required patient management activities. This time is exclusive of all separately billable procedures, and teaching time and separate from and in addition to any other critical care service time. Thank you for allowing us to participate in the care of this patient. Please refer to my attending physician's documentation for any further recommendations. History of Present Illness Reason for Consultation: s/p MARISSA to circumflex Requesting Physician: s/p MARISSA to circumflex Attending Physician: Jeff Nina MD History of Present Illness 63 YOM with medical history of: HLD and seasonal allergies. Patient carries family history of CAD with father with [place] (age 60s), mom (CVA). Patient presented to the EMD for complaints of progressive chest pain that started between [id number] this evening. Patient reports that he was having chili and watching the football game, where he started to have some pressure in his chest. He thought it was heart burn and took a few rollaids, this did not help and the pressure started to intensify across the front of his chest as well as radiation down his left arm with tingling in his fingertips. He was brought to the EMD by his , he arrived as a heart alert in the EMD with STEMI changes inferior with reciprocal changes. He was given asa and morphine with relief of symptoms. He was taken to the botany laboratory assistant and underwent angiography via his right radial artery. HE received one MARISSA to circumflex artery, he was also noted with some non-obstructive residual disease which by reports will be medically managed. Patient will be admitted to the ICU post cath, follow hemodynamics, telemetry. Further screenings for co-morbids. ECHO in am. CODE: FULL Allergies Allergy/AdvReac Type Severity Reaction Status Date / Time No Known Allergies Allergy Unverified 11/04/23 22:34 Home Medications Medication Instructions Recorded Confirmed Type atorvastatin 20 mg tablet 20 mg PO DAILY 11/04/23 11/04/23 History garlic 1,000 mg capsule 1,000 mg PO QAM 11/04/23 11/04/23 History loratadine 10 mg tablet 10 mg PO DAILY 11/04/23 11/04/23 History omega 4-lot-efh-fish oil 1,000 mg 1 cap PO [facility]HS 11/04/23 11/04/23 History (120 mg-180 mg) capsule (Fish Oil) Patient History Medical History High cholesterol Family History (Updated 11/05/23 @ 00:38 by GREGORY Urbano) Other Dyslipidemia Heart disease Hypertension Myocardial infarction Stroke Social History Smoking Status: Former smoker Hx Alcohol Use: Yes Hx Substance Use: No Preferred Language: Japanese 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 Beliefs That Will Affect Care: None Current Living Situation: Significant Other Feels Safe at Home: Yes Review of Systems Review of Systems: REVIEW OF SYSTEMS: Constitutional: No fever, sweats or chills Eyes: No diplopia, no worsening or blurred vision ENT: normal hearing, no trouble swallowing Respiratory: No cough, sputum, dyspnea at rest or on exertion Cardiovascular: (+) chest pain, no tightness or palpitations Abdomen: (+) nausea, No pain, vomiting, diarrhea or constipation Musculoskeletal: No joint pain, calf pain, swelling Neurologic: No weakness, numbness/tingling, or balance problems Psychiatric: No anxiety or depression Skin: No rash or itch Physical Exam Physical Exam: PHYSICAL EXAM: General: awake, alert, no apparent distress Head: Normocephalic, atraumatic ENT: PERRL, EOMI, no pharyngeal exudate, mucous membranes moist Neuro: AAO x 3, speech clear and appropriate, strength intact bilaterally 5/5, sensation intact and equal all extremities and dermatomes, no pronator drift Chest: equal rise and fall of the chest, no accessory muscle use, no heaves or thrills, Clear to auscultation, on room air, Cardiac: Regular rate and rhythm, telemetry reviewed- NSR, skin warm dry, cap refill <3 seconds, right radial site intact, fingers warm and pink, sensation intact, peripheral pulses +2 no JVD, no murmur, no edema GI: NABS x 4 quadrants, soft, nontender to palpation, no rebound, guarding or tenderness : Spontaneously voiding, no pain, no CVA tenderness, Skin: no rash or erythema Results & Data Results & Data Vital Signs (Past 12 Hours) Vital Signs Temp Pulse Resp BP Pulse Ox O2 Del Method O2 Flow Rate 11/04/23 22:30 95 H 11/04/23 22:26 106 H 18 98 Room Air 11/04/23 22:26 98 Room Air 0 11/04/23 22:14 36.8 C 86 20 113/77 97 Room Air Laboratory Results Abnormal lab results 11/04/23 11/04/23 Range/Units 23:26 Unknown T[place]as # (Auto) 0.83 H (0.11-0.59) K/uL Activ Coag Time Kaolin 325 H (94-140) SECONDS Glucose 130 H (70-99(Fasting)) mg/dl ALT 57 H (7-52) U/L Troponin I High Sens 158.0 H* (0-20) pg/ml Medications Administered Home Medications atorvastatin 20 mg tablet 20 mg PO DAILY 11/04/23 [History Confirmed 11/04/23] garlic 1,000 mg capsule 1,000 mg PO QAM 11/04/23 [History Confirmed 11/04/23] loratadine 10 mg tablet 10 mg PO DAILY 11/04/23 [History Confirmed 11/04/23] omega 2-qnf-nvw-fish oil 1,000 mg (120 mg-180 mg) capsule (Fish Oil) 1 cap PO [facility] 11/04/23 [History Confirmed 11/04/23] Active Medications Acetaminophen (Acetaminophen 325 Mg Tab) 650 mg PO Q4H PRN PRN Reason: MILD Pain (Scale 1,2,3) Stop: 12/04/23 23:50 Aspirin (Aspirin 81 Mg Ectab) [facility] [place]: 12/05/23 08:59 Atorvastatin Calcium (Atorvastatin 40 Mg Tab) 80 [facility] [place] Stop: 12/05/23 08:59 Losartan Potassium (Losartan Potassium 25 Mg Tab) 25 mg PO QAM [facility] Stop: 12/05/23 08:59 Metoprolol Tartrate (Metoprolol Tartrate 25 Mg Tab) 25 mg PO BID [facility] Stop: 12/05/23 08:59 Miscellaneous (Icu Protocol For Hyperglycemia) 1 each N/A ACHS [facility] Stop: 11/07/23 07:29 Nitroglycerin (Nitroglycerin Sl 0.4 Mg/Tab Tab) 0.4 mg SL Q5M PRN PRN Reason: Chest Pain Stop: 12/04/23 23:50 Pantoprazole Sodium (Pantoprazole 40 Mg Tab) 40 mg PO QAM [facility] Stop: 12/05/23 08:59 Ticagrelor (Ticagrelor 90 Mg Tab) 90 mg PO BID [facility] Stop: 12/05/23 20:59 ECG Additional Comments: 05-NOV-2023 00:07:31 Sinus rhythm with Premature atrial complexes Low voltage QRS Inferior infarct (cited on or before 04-NOV-2023) Cannot rule out Anterior infarct (cited on or before 04-NOV-2023) Abnormal ECG When compared with ECG of 04-NOV-2023 22:45, (unconfirmed) Serial changes of evolving Anterior infarct Present Serial changes of evolving Inferior infarct Present Coding Level of Care Code 26225 CRITICAL CARE 30-74M Diagnoses STEMI (ST elevation myocardial infarction) I21.3 HTN (hypertension) I10 HLD (hyperlipidemia) E78.5
--- NOTE | 2023-11-05 04:05 | History & Physical Report ---
Date of Service November 05, 2023 Assessment & Plan (1) STEMI (ST elevation myocardial infarction): Plan: 63-year-old male with past med significant for hyperlipidemia, prediabetes, allergic rhinitis, history of sarcoma as per records presents with chest pain an d found to ST elevated PA in inferior leads. S/p cardiac cath and found to have 98% acute lesion in the mid circumflex extending across OM 3 to distal vessel. Small OM 30% ostial stenosis. Right coronary artery dominant medium caliber with 50 to 60% mid stenosis. LAD medium caliber 30 to 40% proximal disease and focal 50% stenosis in the midsegment. Status post drug-eluting stent to circumflex lesion. Current chest pain resolved. ST elevated PA S/p cardiac cath and drug-eluting stent to the circumflex Started on aspirin, Coreg, high-dose statin, Brilinta Follow echo further management as per cardiology Hyperlipidemia Statin Follow lipid profile Hypertension Started on metoprolol and losartan Will monitor Prediabetes Follow HbA1c levels DVT prophylaxis SCDs for now Disposition ICU Full code Admission and Anticipated Discharge Date Admission Date: November 04, 2023 History of Present Illness Chief Complaint: Chest pain. ST elevated PA Primary Care Provider: NO PCP 63-year-old male with past med history significant for hyperlipidemia, prediabetes, allergic rhinitis, history of sarcoma as per records presents with chest pain and found to ST elevated PA in inferior leads. S/p cardiac cath and found to have 98% acute lesion in the mid circumflex extending across OM 3 to distal vessel. Small OM 30% ostial stenosis. Right coronary artery dominant medium caliber with 50 to 60% mid stenosis. LAD medium caliber 30 to 40% proximal disease and focal 50% stenosis in the midsegment. Status post drug- eluting stent to circumflex lesion. Current chest pain resolved. Resting comfortably and hemoglobin stable. Patient states around 8 PM he noticed chest pain 8/10 in severity. Initial thought to be indigestion but then decided come to the ER. On the way felt some tingling in his left shoulder and arm. Denies any nausea. No dizziness. No sweating. No shortness of breath. Currently no headaches. No cough. No feeling of hot or cold. Past medical history. As mentioned above past surgical history. Colonoscopy. Vasectomy. 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 Snuff tobacco 1/2 can per day per epic. Alcohol occasional. No drug use. Family history. Father had CABG in his 60s. Mother had stroke in her 60s. Allergies Allergy/AdvReac Type Severity Reaction Status Date / Time No Known Allergies Allergy Unverified 11/04/23 22:34 Home Medications Medication Instructions Recorded Confirmed Type atorvastatin 20 mg tablet 20 mg PO DAILY 11/04/23 11/04/23 History garlic 1,000 mg capsule 1,000 mg PO QAM 11/04/23 11/04/23 History loratadine 10 mg tablet 10 mg PO DAILY 11/04/23 11/04/23 History omega 6-unb-ijp-fish oil 1,000 mg 1 cap PO AMHS 11/04/23 11/04/23 History (120 mg-180 mg) capsule (Fish Oil) Past Med/Surg History Medical History High cholesterol Family History (Updated 11/05/23 @ 00:38 by GREGORY Urbano) Other Dyslipidemia Heart disease Hypertension Myocardial infarction Stroke Social History Smoking Status: Former smoker Hx Alcohol Use: Yes Hx Substance Use: No Preferred Language: Congolese 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 Lungs- clear to auscultation no wheezing or crackles. Heart- regular rhythm; no murmur, no gallop. Abdomen- normal bowel sounds, soft, nontender, no distension. Extremities- no pretibial edema, no erythema seen. Neuro- alert, oriented x 3; PERRL no facial palsy; no dysarthria; Skin- warm & dry Results & Data Results & Data Vital Signs (Past 12 Hours) Vital Signs Temp Pulse Resp BP BP Pulse Ox O2 Del Method 11/05/23 03:45 64 22 97 11/05/23 03:38 61 19 11/05/23 03:15 62 14 96 11/05/23 03:00 61 17 139/86 96 11/05/23 02:45 61 16 95 11/05/23 02:30 73 12 154/100 H 97 11/05/23 02:15 64 17 96 11/05/23 02:00 138/89 11/05/23 01:45 68 15 96 11/05/23 01:38 65 17 151/100 H 96 11/05/23 01:31 73 18 95 11/05/23 01:31 191/109 H 11/05/23 01:30 72 20 97 11/05/23 01:18 156/103 H 11/05/23 01:18 71 17 94 11/05/23 01:15 86 16 95 11/05/23 01:00 170/105 H 11/05/23 01:00 75 16 96 11/05/23 00:45 76 14 97 11/05/23 00:44 79 11/05/23 00:32 36.8 C 20 174/96 H 96 Room Air 11/05/23 00:30 174/96 H 11/05/23 00:30 82 17 97 11/05/23 00:15 82 20 96 11/05/23 00:00 87 21 96 11/05/23 00:00 161/98 H 11/04/23 23:59 162/100 H 11/04/23 23:59 81 17 96 11/04/23 23:58 87 23 95 11/04/23 23:54 11/04/23 22:45 191/117 H 11/04/23 22:45 87 17 97 11/04/23 22:30 180/104 H 11/04/23 22:30 98 H 19 97 11/04/23 22:30 95 H 11/04/23 22:28 102 H 21 97 11/04/23 22:28 196/115 H 11/04/23 22:26 95 11/04/23 22:26 106 H 18 98 Room Air 11/04/23 22:26 98 Room Air 11/04/23 22:14 36.8 C 86 20 113/77 97 Room Air O2 Del Method O2 Flow Rate 11/05/23 03:45 11/05/23 03:38 11/05/23 03:15 11/05/23 03:00 11/05/23 02:45 11/05/23 02:30 11/05/23 02:15 11/05/23 02:00 11/05/23 01:45 11/05/23 01:38 11/05/23 01:31 11/05/23 01:31 11/05/23 01:30 11/05/23 01:18 11/05/23 01:18 11/05/23 01:15 11/05/23 01:00 11/05/23 01:00 11/05/23 00:45 11/05/23 00:44 11/05/23 00:32 11/05/23 00:30 11/05/23 00:30 11/05/23 00:15 11/05/23 00:00 11/05/23 00:00 11/04/23 23:59 11/04/23 23:59 11/04/23 23:58 11/04/23 23:54 Room Air 11/04/23 22:45 11/04/23 22:45 11/04/23 22:30 11/04/23 22:30 11/04/23 22:30 11/04/23 22:28 11/04/23 22:28 11/04/23 22:26 11/04/23 22:26 11/04/23 22:26 0 11/04/23 22:14 Diagnostic Findings Laboratory Results WBC 8.95 K/ul (4.8-10.8) 11/04/23 Unknown RBC 5.06 M/uL (4.70-6.10) 11/04/23 Unknown Hgb 15.0 g/dl (14.0-18.0) 11/04/23 Unknown Hct 44.8 % (42.0-52.0) 11/04/23 Unknown MCV 88.5 fL (80.0-100.0) 11/04/23 Unknown MCH 29.6 pg (25.0-34.0) 11/04/23 Unknown MCHC 33.5 g/dL (32.0-36.0) 11/04/23 Unknown RDW Std Deviation 41.8 fL (36.4-46.3) 11/04/23 Unknown RDW Coeff of Shine 12.9 % (11.5-14.5) 11/04/23 Unknown Plt Count 248 K/uL (130-400) 11/04/23 Unknown MPV 9.4 fL (9.4-12.4) 11/04/23 Unknown Immature Gran % (Auto) 0.4 % 11/04/23 Unknown Neut % (Auto) 52.5 % 11/04/23 Unknown Lymph % (Auto) 34.3 % 11/04/23 Unknown Frontier % (Auto) 9.3 % 11/04/23 Unknown Eos % (Auto) 3.1 % 11/04/23 Unknown Baso % (Auto) 0.4 % 11/04/23 Unknown Neut # (Auto) 4.69 K/uL (1.40-6.50) 11/04/23 Unknown Lymph # (Auto) 3.07 K/uL (1.20-3.40) 11/04/23 Unknown Frontier # (Auto) 0.83 K/uL (0.11-0.59) H 11/04/23 Unknown Eos # (Auto) 0.28 K/uL (0.00-0.50) 11/04/23 Unknown Baso # (Auto) 0.04 K/uL (0.00-0.20) 11/04/23 Unknown Immature Gran # (Auto) 0.04 K/uL (0.01-0.20) 11/04/23 Unknown PT 10.8 Seconds (9.0-12.0) 11/04/23 Unknown INR 1.0 (0.9-1.1) 11/04/23 Unknown APTT 29 Seconds (21-31) 11/04/23 Unknown PTT Ratio 1.0 11/04/23 Unknown Activ Coag Time Kaolin 325 SECONDS (94-140) H 11/04/23 23:26 Sodium 139 mmol/L (136-145) 11/04/23 Unknown Potassium 3.7 mmol/L (3.5-5.1) 11/04/23 Unknown Chloride 105 mmol/L (98-107) 11/04/23 Unknown Carbon Dioxide 27 mmol/L (21-32) 11/04/23 Unknown Anion Gap 7 (3-11) 11/04/23 Unknown BUN 19 mg/dl (6-23) 11/04/23 Unknown Creatinine 1.17 mg/dl (0.6-1.4) 11/04/23 Unknown Est Cr Clr Drug Dosing 81.7 ml/min 11/04/23 Unknown Est GFR ( Amer) 75.9 ml/min 11/04/23 Unknown Est GFR (Non-Af Amer) 65.5 ml/min 11/04/23 Unknown BUN/Creatinine Ratio 16.2 (10-20) 11/04/23 Unknown Glucose 130 mg/dl (70-99(Fasting)) H 11/04/23 Unknown POC Glucose 113 mg/dl (70-99) H 11/05/23 01:23 Calcium 9.4 mg/dl (8.6-10.3) 11/04/23 Unknown Total Bilirubin 0.6 mg/dl (0.2-1.0) 11/04/23 Unknown AST 35 U/L (13-39) 11/04/23 Unknown ALT 57 U/L (7-52) H 11/04/23 Unknown Alkaline Phosphatase 97 U/L (34-104) 11/04/23 Unknown Troponin I High Sens 2063.8 pg/ml (0-20) H* D 11/05/23 00:31 Total Protein 7.2 gm/dl (6.0-8.3) 11/04/23 Unknown Albumin 4.5 gm/dl (3.4-5.0) 11/04/23 Unknown Globulin 2.7 gm/dl (2.5-4.0) 11/04/23 Unknown Albumin/Globulin Ratio 1.7 (0.9-2) 11/04/23 Unknown Nasal Screen MRSA (PCR) Negative (Negative) 11/05/23 Unknown SARS-CoV-2 (PCR) NEGATIVE (Negative) 11/04/23 22:27 Influenza Type A (PCR) Negative (Neg) 11/04/23 22:27 Influenza Type B (PCR) Negative (Neg) 11/04/23 22:27 RSV (RT-PCR) Negative (Neg) 11/04/23 22:27 ECG Additional Comments: EKG. Sinus rhythm with PACs rate of 88. ST elevations in the inferior leads.
[2023-11-05 04:45] LABS: Basophils # (auto) 0.06 K/uL (0.00-0.20); Basophils % (auto) 0.6 %; Eosinophils # (auto) 0.17 K/uL (0.00-0.50); Eosinophils % (auto) 1.8 %; Hemoglobin 14.4 g/dl (14.0-18.0); Immature Granulocytes # (auto) 0.02 K/uL (0.01-0.20); Immature Granulocytes % (auto) 0.2 %; Lymphocytes # (auto) 2.79 K/uL (1.20-3.40); Lymphocytes % (auto) 29.8 %; Mean Corpuscular Hemoglobin 29.7 pg (25.0-34.0); Mean Corpuscular Hgb Conc 34.3 g/dL (32.0-36.0); Mean Corpuscular Volume 86.6 fL (80.0-100.0); Mean Platelet Volume 9.7 fL (9.4-12.4); Monocytes # (auto) 0.74 K/uL (0.11-0.59); Monocytes % (auto) 7.9 %; Neutrophils # (auto) 5.58 K/uL (1.40-6.50); Neutrophils % (auto) 59.7 %; Platelet Count 235 K/uL (130-400); RDW Standard Deviation 40.8 fL (36.4-46.3); Red Blood Count 4.85 M/uL (4.70-6.10); White Blood Count 9.36 K/ul (4.8-10.8)
[2023-11-05 05:04] LABS: BUN Creatinine Ratio 22.9 (10-20); Calcium 9.2 mg/dl (8.6-10.3); Chol HDL Ratio 4.4 (0-5); Creatinine Clr Calc Pharmacy 114.7 ml/min; Est GFR (African American) 107.8 ml/min; Magnesium 1.9 mg/dl (1.7-2.4); Potassium 3.9 mmol/L (3.5-5.1)
[2023-11-05 07:27] LABS: Estimated Average Glucose 131 mg/dl; Hemoglobin A1C 6.2 % (4.5-5.6)
--- NOTE | 2023-11-05 08:33 | XRay Report ---
XR chest 1V not portable CLINICAL HISTORY: Chest pain, nonspecific. COMPARISON STUDY: No previous studies for comparison. FINDINGS: Lung volumes are normal. Lungs are clear. There is no pneumothorax or pleural effusion. The re is borderline cardiomegaly. Mediastinal contours are normal. There is no evidence for pulmonary ed merly. IMPRESSION: No acute cardiopulmonary findings. ACT 112: Negative or not required by law. Electronically signed by: Shady Farmer M.D. 11/05/2023 8:32 AM
--- NOTE | 2023-11-05 08:43 | XCELERA ---
[id number] \\[id number]
[2023-11-05] MEDS: METOPROLOL TARTRATE 25 MG TAB PO SCH ×2 (10:28→20:24)
[2023-11-05] MEDS: ASPIRIN 81 MG ECTAB PO SCH (10:28)
[2023-11-05] MEDS: ATORVASTATIN 40 MG TAB PO SCH (10:29)
[2023-11-05] MEDS: LOSARTAN POTASSIUM 25 MG TAB PO SCH (10:29)
[2023-11-05] MEDS: ICU Protocol for HYPERglycemia SCH ×2 (10:29→14:50)
[2023-11-05] MEDS: PANTOprazole 40 MG TAB PO SCH (10:29)
--- NOTE | 2023-11-05 10:29 | Cardiology Progress Note ---
Date of Service November 05, 2023 Assessment & Plan (1) STEMI (ST elevation myocardial infarction): Plan: Post PCI to mid/distal circumflex Moderate residual nonculprit [id number]% mid RCA, 50% mid LAD 2. Dyslipidemia 3. Hypertension 4. Borderline diabetes 5. Preserved LV function with inferolateral/lateral wall motion abnormality Remains chest pain-free. Hemodynamically stable. No signs of heart failure. No access site complications. Brief asymptomatic ventricular ectopy this morning. No plans for additional PCI. Will medically manage his residual moderate CAD. From a cardiac standpoint doing well and can be transferred out of ICU today. Trend troponin until peak Continue DAPT with aspirin, Brilinta Continue current metoprolol, home on Toprol-XL Continue current losartan Home on increased atorvastatin Continue to monitor on telemetryif no additional ventricular ectopy and troponin downtrending could potentially go home late afternoon or tomorrow a.m. Will arrange follow-up with me in 1 to 2 weeks. We discussed cardiac rehab today and will arrange as an outpatient Admission and Anticipated Discharge Date Admission Date: November 04, 2023 Subjective Feeling well this morning. Denies any recurrent chest pain. No shortness of breath. No other new complaints. Telemetry reviewedbrief episodes of nonsustained VT this morning, max 4 beats. Echo reviewedEF 50 to 55%, lateral/inferolateral wall motion abnormality. Review of Systems Review of Systems: All systems reviewed & are unremarkable except as noted in HPI & below Physical Exam Physical Exam: General: Comfortable HEENT: Sclerae anicteric Lungs: Clear to auscultation bilaterally, no crackles or wheezes Cardiac: Regular rate and rhythm, no murmurs. Vascular: Right radial artery access site with no ecchymosis, hematoma. Distal pulse and sensation intact. Abdomen: Soft, nontender Extremities: Well perfused, no peripheral edema Neuro: Nonfocal Psych: Alert orient x3, normal affect and mood Results & Data Vital Signs (Past 12 Hours) Vital Signs Temp Pulse Pulse Resp BP BP Pulse Ox 11/05/23 09:05 81 11/05/23 06:30 143/88 H 11/05/23 06:30 64 15 96 11/05/23 06:05 184/112 H 11/05/23 06:05 65 15 97 11/05/23 06:00 58 L 15 97 11/05/23 05:30 60 15 148/81 H 96 12/11/23 05:00 64 18 145/90 H 96 11/05/23 04:30 62 18 145/87 H 95 11/05/23 04:05 98.2 F 11/05/23 04:00 75 20 149/85 H 95 11/05/23 03:45 64 22 97 11/05/23 03:38 61 19 11/05/23 03:15 62 14 96 11/05/23 03:00 61 17 139/86 96 11/05/23 02:45 61 16 95 11/05/23 02:30 73 12 154/100 H 97 11/05/23 02:15 64 17 96 11/05/23 02:00 138/89 11/05/23 01:45 68 15 96 11/05/23 01:38 65 17 151/100 H 96 11/05/23 01:31 73 18 95 11/05/23 01:31 191/109 H 11/05/23 01:30 72 20 97 11/05/23 01:18 156/103 H 11/05/23 01:18 71 17 94 11/05/23 01:15 86 16 95 11/05/23 01:00 170/105 H 11/05/23 01:00 75 16 96 11/05/23 00:45 76 14 97 11/05/23 00:44 79 11/05/23 00:32 98.2 F 20 174/96 H 96 11/05/23 00:30 174/96 H 11/05/23 00:30 82 17 97 11/05/23 00:15 82 20 96 11/05/23 00:00 87 21 96 11/05/23 00:00 161/98 H 11/04/23 23:59 162/100 H 11/04/23 23:59 81 17 96 11/04/23 23:58 87 23 95 11/04/23 23:54 11/04/23 22:45 191/117 H 11/04/23 22:45 87 17 97 11/04/23 22:30 180/104 H 11/04/23 22:30 98 H 19 97 11/04/23 22:30 95 H 11/04/23 22:28 102 H 21 97 11/04/23 22:28 196/115 H 11/04/23 22:26 95 11/04/23 22:26 106 H 18 98 11/04/23 22:26 98 O2 Del Method O2 Del Method O2 Flow Rate 11/05/23 09:05 11/05/23 06:30 11/05/23 06:30 11/05/23 06:05 11/05/23 06:05 11/05/23 06:00 11/05/23 05:30 11/05/23 05:00 11/05/23 04:30 11/05/23 04:05 11/05/23 04:00 11/05/23 03:45 11/05/23 03:38 11/05/23 03:15 11/05/23 03:00 11/05/23 02:45 11/05/23 02:30 11/05/23 02:15 11/05/23 02:00 11/05/23 01:45 11/05/23 01:38 11/05/23 01:31 11/05/23 01:31 11/05/23 01:30 11/05/23 01:18 11/05/23 01:18 11/05/23 01:15 11/05/23 01:00 11/05/23 01:00 11/05/23 00:45 11/05/23 00:44 11/05/23 00:32 Room Air 11/05/23 00:30 11/05/23 00:30 11/05/23 00:15 11/05/23 00:00 11/05/23 00:00 11/04/23 23:59 11/04/23 23:59 11/04/23 23:58 11/04/23 23:54 Room Air 11/04/23 22:45 11/04/23 22:45 11/04/23 22:30 11/04/23 22:30 11/04/23 22:30 11/04/23 22:28 11/04/23 22:28 11/04/23 22:26 11/04/23 22:26 Room Air 11/04/23 22:26 Room Air 0 PG Care Time/CCT Total # of Minutes Spent Total Time Spent with Patient: Total time spent is greater than 50% in coordination of care (as documented) at patient's floor/unit and/or counseling patient: Coding Level of Care Code 20363 SUB INP/OBS CARE 3/50MIN Diagnoses STEMI (ST elevation myocardial infarction) I21.3
[2023-11-05] MEDS: TICAGRELOR 90 MG TAB PO SCH ×2 (12:39→20:24)
--- NOTE | 2023-11-05 13:17 | Hospitalist Progress Note ---
Date of Service November 05, 2023 Assessment & Plan (1) STEMI (ST elevation myocardial infarction): Plan: 63-year-old male with past med significant for hyperlipidemia, prediabetes, allergic rhinitis, history of sarcoma as per records presents with chest pain an d found to ST elevated [place] in inferior leads. S/p cardiac cath and found to have 98% acute lesion in the mid circumflex extending across OM 3 to distal vessel. Small OM 30% ostial stenosis. Right coronary artery dominant medium caliber with 50 to 60% mid stenosis. LAD medium caliber 30 to 40% proximal disease and focal 50% stenosis in the midsegment. Status post drug-eluting stent to circumflex lesion. Current chest pain resolved. ST elevated [place] S/p cardiac cath and drug-eluting stent to the circumflex Cardiac cath Post PCI to mid/distal circumflex Moderate residual nonculprit [id number]% mid RCA, 50% mid LAD continue dual antiplatelet therapy with Brilinta and aspirin Continue toprol, statin and losartan Echo showed normal LV size, mild concentric LVH. LVEF 50-55%. Inferolateral, lateral wall hypokinesis Cardiology on board Currently chest pain free Continue trend troponin Will need to refer to cardiac rehab Will transfer to Tele Plan to discharge tomorrow if no ventricular ectopy and troponin trending down Follow up with cardiology in 1 to 2 weeks. Hyperlipidemia Continue Statin Hypertension Continue metoprolol and losartan Continue monitor BP Prediabetes Most recent Hba1c 6.2 DVT prophylaxis SCDs for now Disposition Will transfer to tele Full code Admission and Anticipated Discharge Date Admission Date: November 04, 2023 Subjective Pt was seen and examined for follow up of STEMI Lying in bed with no acute distress Arrhythmia noted on telemonitor this morning Pt said that he feels fine He said that he does not have any chest discomfort Denies any chest pain, palpitation, dizziness and SOB Review of Systems Review of Systems: All systems reviewed & are unremarkable except as noted in Subjective Physical Exam Physical Exam: General- No acute distress Head- atraumatic Eyes- PERRL, EOMI, ENT- oropharynx clear Neck- supple, no JVD Lungs- clear to auscultation Heart- regular rhythm; no murmur Abdomen- normal bowel sounds, soft, nontender Extremities- no calf tenderness, right radial ( wrist ) with no hematoma and ecchymoses Neuro- alert, oriented x 3; PERRL, EOMI; no facial palsy; no dysarthria Skin- warm & dry Results & Data Results & Data Vital Signs (Past 12 Hours) Vital Signs Temp Pulse Pulse Resp BP Pulse Ox 11/05/23 09:05 81 11/05/23 06:30 143/88 H 11/05/23 06:30 64 15 96 11/05/23 06:05 184/112 H 11/05/23 06:05 65 15 97 11/05/23 06:00 58 L 15 97 11/05/23 05:30 60 15 148/81 H 96 11/05/23 05:00 64 18 145/90 H 96 11/05/23 04:30 62 18 145/87 H 95 11/05/23 04:05 36.8 C 11/05/23 04:00 75 20 149/85 H 95 11/05/23 03:45 64 22 97 11/05/23 03:38 61 19 11/05/23 03:15 62 14 96 11/05/23 03:00 61 17 139/86 96 11/05/23 02:45 61 16 95 11/05/23 02:30 73 12 154/100 H 97 11/05/23 02:15 64 17 96 11/05/23 02:00 138/89 11/05/23 01:45 68 15 96 11/05/23 01:38 65 17 151/100 H 96 11/05/23 01:31 73 18 95 11/05/23 01:31 191/109 H 11/05/23 01:30 72 20 97 11/05/23 01:18 156/103 H 11/05/23 01:18 71 17 94
--- NOTE | 2023-11-05 18:37 | Electrocardiogram Report ---
Test Reason : Blood Pressure : / mmHG Vent. Rate : 084 BPM Atrial Rate : 084 BPM P-R Int : 164 ms QRS Dur : 082 ms QT Int : 358 ms P-R-T Axes : 064 -17 079 degrees QTc Int : 423 ms Normal sinus rhythm Inferior infarct , possibly acute Cannot rule out Anterior infarct , new Consider right ventricular involvement in acute inferior infarct Abnormal ECG When compared with ECG of 05-MAR-2019 09:48, Acute Anterior infarct is now Present Confirmed by Yimi Ornelas ([id number]) on 11/05/2023 6:37:14 PM Referred By: REFERRED SELF Confirmed By:Yimi Ornelas
--- NOTE | 2023-11-05 18:42 | Electrocardiogram Report ---
Test Reason : Blood Pressure : / mmHG Vent. Rate : 088 BPM Atrial Rate : 088 BPM P-R Int : 172 ms QRS Dur : 080 ms QT Int : 360 ms P-R-T Axes : 072 -06 088 degrees QTc Int : 435 ms Sinus rhythm with Premature atrial complexes Acute Inferior infarct (cited on or before 04-NOV-2023) Cannot rule out Anterior infarct (cited on or before 04-NOV-2023) Consider right ventricular involvement in acute inferior infarct Abnormal ECG When compared with ECG of 04-NOV-2023 22:19, (unconfirmed) Premature atrial complexes are now Present Serial changes of evolving Anterior infarct Present Serial changes of Inferior infarct Present Confirmed by Yimi Ornelas ([id number]) on 11/05/2023 6:41:47 PM Referred By: REFERRED SELF Confirmed By:Yimi Ornelas
--- NOTE | 2023-11-05 18:44 | Electrocardiogram Report ---
Test Reason : Blood Pressure : / mmHG Vent. Rate : 075 BPM Atrial Rate : 075 BPM P-R Int : 178 ms QRS Dur : 076 ms QT Int : 356 ms P-R-T Axes : 066 -07 052 degrees QTc Int : 397 ms Sinus rhythm with Premature atrial complexes Low voltage QRS Inferior infarct (cited on or before 04-NOV-2023) Cannot rule out Anterior infarct (cited on or before 04-NOV-2023) Abnormal ECG When compared with ECG of 04-NOV-2023 22:45, (unconfirmed) Serial changes of evolving Inferior infarct Present Confirmed by Yimi Ornelas ([id number]) on 11/05/2023 6:44:10 PM Referred By: REFERRED SELF Confirmed By:Yimi Ornelas
[2023-11-05] MEDS ORDERED: TICAGRELOR 90 MG TAB PO SCH (21:00)
[2023-11-06] MEDS ORDERED: ZOLPIDEM TARTRATE 5 MG TAB PO PRN (00:21)
[2023-11-06 05:04] LABS: Basophils # (auto) 0.05 K/uL (0.00-0.20); Basophils % (auto) 0.5 %; Eosinophils # (auto) 0.29 K/uL (0.00-0.50); Hematocrit (blood only) 44.9 % (42.0-52.0); Hemoglobin 14.9 g/dl (14.0-18.0); Immature Granulocytes # (auto) 0.03 K/uL (0.01-0.20); Immature Granulocytes % (auto) 0.3 %; Lymphocytes # (auto) 2.28 K/uL (1.20-3.40); Lymphocytes % (auto) 23.3 %; Mean Corpuscular Hemoglobin 29.5 pg (25.0-34.0); Mean Corpuscular Hgb Conc 33.2 g/dL (32.0-36.0); Mean Corpuscular Volume 88.9 fL (80.0-100.0); Mean Platelet Volume 9.5 fL (9.4-12.4); Monocytes # (auto) 0.83 K/uL (0.11-0.59); Monocytes % (auto) 8.5 %; Neutrophils # (auto) 6.31 K/uL (1.40-6.50); Neutrophils % (auto) 64.4 %; Platelet Count 226 K/uL (130-400); RDW Coefficient of Variation 13.2 % (11.5-14.5); RDW Standard Deviation 42.5 fL (36.4-46.3); Red Blood Count 5.05 M/uL (4.70-6.10); White Blood Count 9.79 K/ul (4.8-10.8)
[2023-11-06 05:20] LABS: BUN Creatinine Ratio 19.8 (10-20); Calcium 8.9 mg/dl (8.6-10.3); Creatinine Clr Calc Pharmacy 110.7 ml/min; Est GFR (African American) 106.2 ml/min; Est GFR (Non-African American) 91.6 ml/min; Potassium 3.9 mmol/L (3.5-5.1)
[2023-11-06] MEDS: METOPROLOL TARTRATE 25 MG TAB PO SCH (08:30)
[2023-11-06] MEDS: ASPIRIN 81 MG ECTAB PO SCH (08:30)
[2023-11-06] MEDS: ATORVASTATIN 40 MG TAB PO SCH (08:30)
[2023-11-06] MEDS: PANTOprazole 40 MG TAB PO SCH (08:30)
[2023-11-06] MEDS: TICAGRELOR 90 MG TAB PO SCH (08:30)
[2023-11-06] MEDS: LOSARTAN POTASSIUM 25 MG TAB PO SCH (08:30)
--- NOTE | 2023-11-06 12:53 | Cardiology Progress Note ---
Date of Service November 06, 2023 Assessment & Plan (1) STEMI (ST elevation myocardial infarction): Plan: Post PCI to mid/distal circumflex Moderate residual nonculprit [id number]% mid RCA, 50% mid LAD 2. Dyslipidemia 3. Hypertension 4. Borderline diabetes 5. Preserved LV function with inferolateral/lateral wall motion abnormality Remains chest pain-free. Troponin peaked. Hemodynamically and electrically stable No signs of heart failure. No access site complications. From a cardiac standpoint okay with discharge today Continue DAPT with aspirin, Brilinta Transition metoprolol to Toprol-XL on discharge Continue current losartan Home on increased atorvastatin Consider GLP-1 as an outpatient. Will arrange follow-up with me in 1 to 2 weeks. We discussed cardiac rehab and will arrange as an outpatient Admission and Anticipated Discharge Date Admission Date: November 04, 2023 Subjective Feeling well. No recurrent chest pain. No new concerns. Telemetry reviewedno events Review of Systems Review of Systems: All systems reviewed & are unremarkable except as noted in HPI & below Physical Exam Physical Exam: General: Comfortable HEENT: Sclerae anicteric Lungs: Clear to auscultation bilaterally, no crackles or wheezes Cardiac: Regular rate and rhythm, no murmurs. Vascular: Right radial artery access site with no ecchymosis, hematoma. Distal pulse and sensation intact. Abdomen: Soft, nontender Extremities: Well perfused, no peripheral edema Neuro: Nonfocal Psych: Alert orient x3, normal affect and mood Results & Data Vital Signs (Past 12 Hours) Vital Signs Temp Pulse Pulse Resp BP BP Pulse Ox 11/06/23 12:00 66 16 105/71 95 11/06/23 12:00 98.1 F 11/06/23 08:34 90 9 L 120/81 11/06/23 08:34 83 120/81 11/06/23 07:08 73 17 116/80 95 11/06/23 07:08 97.7 F 11/06/23 04:02 98.2 F 70 20 94/52 L 97 O2 Del Method 11/06/23 12:00 Room Air 11/06/23 12:00 11/06/23 08:34 11/06/23 08:34 11/06/23 07:08 Room Air 11/06/23 07:08 11/06/23 04:02 Room Air PG Care Time/CCT Total # of Minutes Spent Total Time Spent with Patient: Total time spent is greater than 50% in coordination of care (as documented) at patient's floor/unit and/or counseling patient: Coding Level of Care Code 65941 SUB INP/OBS CARE 235MIN Diagnoses STEMI (ST elevation myocardial infarction) I21.3
--- NOTE | 2023-11-06 13:20 | Discharge Summary ---
Date of Service November 06, 2023 Admission HPI Per Admitting Provider 63-year-old male with past med history significant for hyperlipidemia, prediabetes, allergic rhinitis, history of sarcoma as per records presents with chest pain and found to ST elevated [place] in inferior leads. S/p cardiac cath and found to have 98% acute lesion in the mid circumflex extending across OM 3 to distal vessel. Small OM 30% ostial stenosis. Right coronary artery dominant medium caliber with 50 to 60% mid stenosis. LAD medium caliber 30 to 40% proximal disease and focal 50% stenosis in the midsegment. Status post drug- eluting stent to circumflex lesion. Current chest pain resolved. Resting com fortably and hemoglobin stable. Patient states around 8 PM he noticed chest pain 8/10 in severity. Initial thought to be indigestion but then decided come to the ER. On the way felt some tingling in his left shoulder and arm. Denies any nausea. No dizziness. No sweating. No shortness of breath. Currently no headaches. No cough. No feeling of hot or cold. Past medical history. As mentioned above past surgical history. Colonoscopy. Vasectomy. 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 Snuff tobacco 1/2 can per day per epic. Alcohol occasional. No drug use. Family history. Father had CABG in his 60s. Mother had stroke in her 60s. Admission Exam Per Admitting Provider General- Not in distress Head- atraumatic Eyes- PERRL ENT- oropharynx clear Neck- supple, no JVD. Lungs- clear to auscultation no wheezing or crackles. Heart- regular rhythm; no murmur, no gallop. Abdomen- normal bowel sounds, soft, nontender, no distension. Extremities- no pretibial edema, no erythema seen. Neuro- alert, oriented x 3; PERRL no facial palsy; no dysarthria; Skin- warm & dry Principal Diagnosis ST elevated [place] S/p cardiac cath and drug-eluting stent to the circumflex Hyperlipidemia Hypertension Prediabetes Discharge Exam General- No acute distress Head- atraumatic Eyes- PERRL, EOMI, ENT- oropharynx clear Neck- supple, no JVD Lungs- clear to auscultation Heart- regular rhythm; no murmur Abdomen- normal bowel sounds, soft, nontender Extremities- no calf tenderness, right radial ( wrist ) with no hematoma and ecchymoses Neuro- alert, oriented x 3; PERRL, EOMI; no facial palsy; no dysarthria Skin- warm & dry Discharge Data Allergies Allergy/AdvReac Type Severity Reaction Status Date / Time No Known Allergies Allergy Unverified 11/04/23 22:34 Consultations 11/04/23 22:57 Consult Cardiac Catheterization Stat ED Decision to Admit Stat 11/05/23 03:49 Consult Cardiology Routine 11/05/23 11:52 Consult Manifest/Order Organizer Print Orders Routine Procedures Performed Operation Date: 11/04/23 10:45 Actual Procedures p Cath, Left with Cors and Vent - Russ Lizama MD p Aspiration/PCI w/MARISSA for Stemi - Russ Lizama MD s Cineradiography w/Routine Exam - Russ Lizama MD Ordered Studies 11/04/23 22:39 CL Cath Imgs for PACS use only Stat Laboratory Results WBC 9.79 K/ul (4.8-10.8) 11/06/23 04:41 RBC 5.05 M/uL (4.70-6.10) 11/06/23 04:41 Hgb 14.9 g/dl (14.0-18.0) 11/06/23 04:41 Hct 44.9 % (42.0-52.0) 11/06/23 04:41 MCV 88.9 fL (80.0-100.0) 11/06/23 04:41 MCH 29.5 pg (25.0-34.0) 11/06/23 04:41 MCHC 33.2 g/dL (32.0-36.0) 11/06/23 04:41 RDW Std Deviation 42.5 fL (36.4-46.3) 11/06/23 04:41 RDW Coeff of Shine 13.2 % (11.5-14.5) 11/06/23 04:41 Plt Count 226 K/uL (130-400) 11/06/23 04:41 MPV 9.5 fL (9.4-12.4) 11/06/23 04:41 Immature Gran % (Auto) 0.3 % 11/06/23 04:41 Neut % (Auto) 64.4 % 11/06/23 04:41 Lymph % (Auto) 23.3 % 11/06/23 04:41 [place] % (Auto) 8.5 % 11/06/23 04:41 Eos % (Auto) 3.0 % 11/06/23 04:41 Baso % (Auto) 0.5 % 11/06/23 04:41 Neut # (Auto) 6.31 K/uL (1.40-6.50) 11/06/23 04:41 Lymph # (Auto) 2.28 K/uL (1.20-3.40) 11/06/23 04:41 [place] # (Auto) 0.83 K/uL (0.11-0.59) H 11/06/23 04:41 Eos # (Auto) 0.29 K/uL (0.00-0.50) 11/06/23 04:41 Baso # (Auto) 0.05 K/uL (0.00-0.20) 11/06/23 04:41 Immature Gran # (Auto) 0.03 K/uL (0.01-0.20) 11/06/23 04:41 PT 10.8 Seconds (9.0-12.0) 11/04/23 Unknown INR 1.0 (0.9-1.1) 11/04/23 Unknown APTT 29 Seconds (21-31) 11/04/23 Unknown PTT Ratio 1.0 11/04/23 Unknown Activ Coag Time Kaolin 325 SECONDS (94-140) H 11/04/23 23:26 Sodium 137 mmol/L (136-145) 11/06/23 04:41 Potassium 3.9 mmol/L (3.5-5.1) 11/06/23 04:41 Chloride 107 mmol/L (98-107) 11/06/23 04:41 Carbon Dioxide 24 mmol/L (21-32) 11/06/23 04:41 Anion Gap 6 (3-11) 11/06/23 04:41 BUN 17 mg/dl (6-23) 11/06/23 04:41 Creatinine 0.86 mg/dl (0.6-1.4) 11/06/23 04:41 Est Cr Clr Drug Dosing 110.7 ml/min 11/06/23 04:41 Est GFR ( Amer) 106.2 ml/min 11/06/23 04:41 Est GFR (Non-Af Amer) 91.6 ml/min 11/06/23 04:41 BUN/Creatinine Ratio 19.8 (10-20) 11/06/23 04:41 Glucose 102 mg/dl (70-99(Fasting)) H 11/06/23 04:41 POC Glucose 134 mg/dl (70-99) H 11/05/23 09:48 Estimat Average Glucose 131 mg/dl 11/05/23 04:19 Hemoglobin A1c 6.2 % (4.5-5.6) H 11/05/23 04:19 Calcium 8.9 mg/dl (8.6-10.3) 11/06/23 04:41 Magnesium 1.9 mg/dl (1.7-2.4) 11/05/23 04:19 Total Bilirubin 0.6 mg/dl (0.2-1.0) 11/04/23 Unknown AST 35 U/L (13-39) 11/04/23 Unknown ALT 57 U/L (7-52) H 11/04/23 Unknown Alkaline Phosphatase 97 U/L (34-104) 11/04/23 Unknown Troponin I High Sens 5841.8 pg/ml (0-20) H* D 11/05/23 17:22 Total Protein 7.2 gm/dl (6.0-8.3) 11/04/23 Unknown Albumin 4.5 gm/dl (3.4-5.0) 11/04/23 Unknown Globulin 2.7 gm/dl (2.5-4.0) 11/04/23 Unknown Albumin/Globulin Ratio 1.7 (0.9-2) 11/04/23 Unknown Triglycerides 270 mg/dl (0-150) H 11/05/23 04:19 Cholesterol 181 mg/dl (0-200) 11/05/23 04:19 LDL Cholesterol, Calc 86 mg/dl 11/05/23 04:19 VLDL Cholesterol, Calc 54 mg/dl (0-30) H 11/05/23 04:19 HDL Cholesterol 41 mg/dl 11/05/23 04:19 Cholesterol/HDL Ratio 4.4 (0-5) 11/05/23 04:19 Nasal Screen MRSA (PCR) Negative (Negative) 11/05/23 Unknown SARS-CoV-2 (PCR) NEGATIVE (Negative) 12/10/23 22:27 Influenza Type A (PCR) Negative (Neg) 11/04/23 22:27 Influenza Type B (PCR) Negative (Neg) 11/04/23 22:27 RSV (RT-PCR) Negative (Neg) 11/04/23 22:27 Impressions Chest X-Ray 11/04/23 22:17 XR chest 1V not portable CLINICAL HISTORY: Chest pain, nonspecific. COMPARISON STUDY: No previous studies for comparison. FINDINGS: Lung volumes are normal. Lungs are clear. There is no pneumothorax or pleural effusion. There is borderline cardiomegaly. Mediastinal contours are normal. There is no evidence for pulmonary edema. IMPRESSION: No acute cardiopulmonary findings. ACT 112: Negative or not required by law. Electronically signed by: Shady Farmer M.D. 11/05/2023 8:32 AM Hospital Course (1) STEMI (ST elevation myocardial infarction): 63-year-old male with past med significant for hyperlipidemia, prediabetes, allergic rhinitis, history of sarcoma as per records presents with chest pain and found to ST elevated [place] in inferior leads. S/p cardiac cath and found to have 98% acute lesion in the mid circumflex extending across OM 3 to distal vessel. Small OM 30% ostial stenosis. Right coronary artery dominant medium caliber with 50 to 60% mid stenosis. LAD medium caliber 30 to 40% proximal disease and focal 50% stenosis in the midsegment. Status post drug-eluting stent to circumflex lesion. Current chest pain resolved. ST elevated [place] S/p cardiac cath and drug-eluting stent to the circumflex Cardiac cath Post PCI to mid/distal circumflex Moderate residual nonculprit % mid RCA, 50% mid LAD continue dual antiplatelet therapy with Brilinta and aspirin Continue toprol, statin and losartan Echo showed normal LV size, mild concentric LVH. LVEF 50-55%. Inferolateral, lateral wall hypokinesis Cardiology on board Currently chest pain free Continue trend troponin Will need to refer to cardiac rehab Will transfer to Tele Plan to discharge tomorrow if no ventricular ectopy and troponin trending down Follow up with cardiology in 1 to 2 weeks. Hyperlipidemia Continue Statin Hypertension Continue metoprolol and losartan Continue monitor BP Prediabetes Most recent Hba1c 6.2 DVT prophylaxis SCDs for now Disposition Will transfer to tele Full code Total Time Total Time Spent Total Time Spent (In Minutes): 35 minutes Discharge Plan Discharge Items Patient Disposition: Home - Self-Care Reason For Visit: STEMI Discharge Diagnosis: STEMI (ST elevation myocardial infarction) Activity: Resume your previous activity Lifting: Gradually increase as tolerated Non-emergency contact: Primary Care Provider and Nursing Scheduler Call non-emergency contact if: you have any medication questions Follow-up/Referrals: Russ Lizama MD [Physician] - (The [facility] Cardiology office will contact you for a follow up appointment.) Lakhwinder Colbert MD [Outside Practitioners] - (Date & Time 11/08/2023 10:20 AM Provider Lakhwinder Colbert MD Department [facility] ) [facility] [Non-Staff] - Diet: Heart Healthy Addtl Attending Provider Instructions: Follow up with your primary care provider 11/08/2023 @ 10:20 AM Lakhwinder Colbert MD [facility] Follow up with Cardiology Dr. Lizama in 1 to 2 weeks( office will call you for the appointment) Your provider or cardiology will refer you for cardiac rehab Continue dual antiplatelet therapy with aspirin and Brilinta Atorvastatin increased to 80mg daily Continue monitor your blood pressure Seek medical attention if develops any symptoms such as Shortness of breath or chest pain Keep the area for the cardiac cath clean and dry to avoid any infection Do not use creams, lotions or ointment on the wound site Do not take a bath, tub soak, go in a Jacuzzi, or swim in a pool or jefferson for one week after the procedure. Do not participate in strenuous activities for 3 days after the procedure. Gradually increase your activities until you reach your normal activity level within two days after the procedure. Avoid heavy lifting (more than 10 pounds) and pushing or pulling heavy objects for the first 5 days after the procedure. Pending Studies at Discharge: No Stand-Alone Forms: My [employer], Smoking Cessation Medications and DC Order Prescriptions: New aspirin 81 mg Tablet,Delayed Release (Dr/Ec) 81 mg PO QAM 30 Days Qty: 30 0RF losartan 25 mg Tablet 25 mg PO QAM 30 Days Qty: 30 0RF metoprolol tartrate 25 mg Tablet 25 mg PO BID 30 Days Qty: 60 0RF pantoprazole 40 mg Tablet,Delayed Release (Dr/Ec) 40 mg PO QAM 30 Days Qty: 30 0RF Brilinta 90 mg Tablet 90 mg PO BID Qty: 60 0RF atorvastatin 80 mg tablet 80 mg PO DAILY Qty: 30 0RF Continued loratadine 10 mg tablet 10 mg PO DAILY omega [id number]-[id number]-[id number]-fish oil [Fish Oil] 1,000 mg (120 mg-180 mg) Capsule 1 cap PO AMHS garlic 1,000 mg Capsule 1,000 mg PO QAM Discontinued atorvastatin 20 mg tablet 20 mg PO DAILY Discharge Orders: Discharge Order (Routine); Ordered 11/06/23 Ordered By: Janice Castro/Other Patient Handouts: Ticagrelor Oral Tablet, Aspirin Oral Tablet, Losartan Oral Tablet, Metoprolol Oral Tablet, Pantoprazole DR Oral Tab, Prediabetes, 5 Steps for Eating Healthier, Medicines for Heart Disease Admission Data Admit Date/Time: 11/04/23 23:07 Attending Provider: Janice Wolf Admit Provider: Jeff Nina Primary Care Provider: PCP,NO Other Providers: Russ Lizama; Jeff Nina; Fran Romo Other Interventions: Discharge Summary Assessment (RN) Last Done: 11/06/23 13:58
== END 2023-11-06 14:03 | disposition home or self-care (01) | DRG 322 ==
LOC: ED 22:09 → 1E 23:00 → CC 23:00 → SUATTDRO 23:07 → 1E 23:07